=== PATIENT | female | born 1955 | race Caucasian/White ===

== ENCOUNTER 2021-04-02 10:21 | Inpatient (IN) | payer MEDICARE ==
[2021-04-02] VITALS (9 sets, daily range): BP systolic 123–157; BP diastolic 69–129
[~2021-04-02] VITALS: Ht 162.6 cm; Wt 119.7 kg
--- NOTE | 2021-04-02 10:54 | PHYS DOC ---
General Adult EDM: Chief Complaint: WEAKNESS/GENERALIZED HPI: HPI: 65-year-old female presents with weakness. The patient has had increased weakness and decreased exercise tolerance since February. She presents today because she feels like her bilateral lower legs have increased in swelling significantly over the last several days. She has also noticed some abdominal swelling and states that she does not eat very much so she does not see how she can be gaining weight. She has a history of atrial fibrillation with ablation. She is not on medication for rate or rhythm control at this time. She has intermittently noticed that her heart might be beating faster, but she generally does not feel it. She denies fever or chills. She has no official pulmonary diagnosis but used to be a smoker. Review of Systems: Review of Systems: Constitutional: Denies fever or chills. Fatigue Eyes: Denies change in visual acuity HENT: Denies nasal congestion or sore throat Respiratory: shortness of breath Cardiovascular: Denies chest pain. Increased leg and abdominal edema. GI: Denies abdominal pain, nausea, vomiting, bloody stools or diarrhea : Denies dysuria Musculoskeletal: Denies back pain or joint pain Integument: Denies rash Neurologic: Denies headache, focal weakness or sensory changes Endocrine: Denies polyuria or polydipsia Lymphatic: Denies swollen glands Psychiatric: Denies depression or anxiety Current Medications: Current Meds: Current Medications Medications (Trade) Dose Ordered Sig/January Start Time Stop Time Status Last Admin Dose Admin Furosemide (Lasix) 40 mg 1X ONCE 04/02/21 11:00 04/02/21 11:01 UNV Allergies: Allergies: Allergies Coded Allergies Type Severity Reaction Last Updated Verified Penicillins Allergy Unknown 04/02/21 Yes Physical Exam: PE: Constitutional: Well developed, well nourished, obese, no acute distress, non- toxic appearance. [] HENT: Normocephalic, atraumatic, bilateral external ears normal, oropharynx moist, no oral exudates, nose normal. [] Eyes: PERRLA, EOMI, conjunctiva normal, no discharge. [] Neck: Normal range of motion, no tenderness, supple, no stridor. [] Cardiovascular: Heart rate 141,irregular rhythm, no murmur [] Lungs & Thorax: Bilateral breath sounds with expiratory wheeze [] Abdomen: Bowel sounds normal, soft, no tenderness, no masses, no pulsatile masses. [] Skin: Warm, dry, no erythema, no rash. [] Back: No tenderness, no CVA tenderness. [] Extremities: No tenderness, no cyanosis, no clubbing, ROM intact, 4+ pitting edema of the abdomen and bilateral lower extremities to the knees. [] Neurologic: Alert and oriented X 3, normal motor function, normal sensory function, no focal deficits noted. [] Psychologic: Affect normal, judgement normal, mood normal. [] EKG: EKG: Irregular rhythm, rate 141, normal axis, no ST elevation or depression. [] Radiology/Procedures: Radiology/Procedures: [] Impressions: Single view of the chest. 04/02/2021 10:55 AM Indication: Reason: weakness / Spl. Instructions: / History: Comparison: None available Findings: The heart is enlarged. There are small bilateral pleural effusions with underlying atelectasis. Central vascular congestion and interstitial thickening are seen, most likely edema. No acute osseous changes are identified. Chronic right rib fractures noted. IMPRESSION: Cardiomegaly, small bilateral pleural effusions, central vascular congestion, interstitial thickening. These consistent with congestive failure. Electronically signed by: Vincenzo Anaya MD (04/02/2021 11:03 AM) [id number] DICTATED AND SIGNED BY: VINCENZO NAAYA MD DATE: 04/02/21 110 CC: PAYAM CLIFFORD DO; SHWETA BYRNES MD ~MTH0 0 Heart Score: C/O Chest Pain: No Risk Factors: Risk Factors: DM, Current or recent (<one month) smoker, HTN, HLP, family history of CAD, obesity. Risk Scores: Score 0 - 3: 2.5% MACE over next 6 weeks - Discharge Home Score 4 - 6: 20.3% MACE over next 6 weeks - Admit for Clinical Observation Score 7 - 10: 72.7% MACE over next 6 weeks - Early Invasive Strategies Course & Med Decision Making: Course & Med Decision Making Pertinent Labs and Imaging studies reviewed. (See chart for details) On arrival, the patient has a heart rate in the 140s to 160s. She is obviously edematous of the lower extremities and likely the abdomen. We will treat her with 40 mg of Lasix, albuterol nebulizer for wheezing, and 20 mg of Cardizem IV. Her heart rate improved but is increased to the 130s again. The patient's labs are significant for an elevated hemoglobin and hematocrit. She appears clinically dry. I will bolus her with 500 mg of normal saline despite her fluid overload. Her chest x-ray suggestive of pulmonary congestion and fluid overload. I will place her on a Cardizem drip and admit her to the hospital. I spoke with Dr. Diaz and he has accepted the patient for admission. [] Dragon Disclaimer: Dragon Disclaimer: This electronic medical record was generated, in whole or in part, using a voice recognition dictation system. Departure Departure: Impression: Primary Impression: Atrial fibrillation Qualified Codes: I48.0 - Paroxysmal atrial fibrillation Additional Impression: CHF (congestive heart failure) Qualified Codes: I50.21 - Acute systolic (congestive) heart failure Disposition: ADMITTED INPATIENT Admitting Physician: Shweta Byrnes Condition: STABLE Referrals: SHWETA BYRNES MD (PCP) PAYAM CLIFFORD DO Apr 02, 2021 10:53
[2021-04-02] MEDS ORDERED: ALBUTEROL SULFATE 2.5 MG/3 ML NEBU. NEB ONE (11:00)
[2021-04-02] MEDS ORDERED: dilTIAZem 25 MG/5 ML VIAL IVP ONE (11:00)
[2021-04-02] MEDS ORDERED: FUROSEMIDE 40 MG/4 ML VIAL IVP ONE (11:00)
--- NOTE | 2021-04-02 11:05 | RAD ---
Single view of the chest. 04/02/2021 10:55 AM Indication: Reason: weakness / Spl. Instructions: / History: Comparison: None available Findings: The heart is enlarged. There are small bilateral pleural effusions with underlying atelecta sis. Central vascular congestion and interstitial thickening are seen, most likely edema. No acute os seous changes are identified. Chronic right rib fractures noted. IMPRESSION: Cardiomegaly, small bilateral pleural effusions, central vascular congestion, interstitia l thickening. These consistent with congestive failure. Electronically signed by: Vincenzo Lopez MD (04/02/2021 11:03 AM) [id number]
[2021-04-02 11:18] LABS: BASO % 0 % (0-3); EOS % 0 % (0-3); HEMATOCRIT 51.1 % (36.0-47.0); HEMOGLOBIN 16.3 g/dL (12.0-15.5); LYMPH # 0.7 x10^3/uL (1.0-4.8); LYMPH % 7 % (24-48); MEAN CORPUSCULAR HEMOGLOBIN 26 pg (25-35); MEAN CORPUSCULAR HGB CONC 32 g/dL (31-37); MEAN CORPUSCULAR VOLUME 82 fL (79-100); MONO # 0.6 x10^3/uL (0.0-1.1); MONO % 6 % (0-9); NEUT # 8.3 x10^3uL (1.8-7.7); NEUT % 86 % (31-73); PLATELET COUNT 247 x10^3/uL (140-400); RED BLOOD COUNT 6.21 x10^6/uL (3.50-5.40); RED CELL DISTRIBUTION WIDTH 18.6 % (11.5-14.5); WHITE BLOOD COUNT 9.6 x10^3/uL (4.0-11.0)
[2021-04-02 11:31] LABS: CALCIUM 9.6 mg/dL (8.5-10.1); CREATININE 1.4 mg/dL (0.6-1.0); GFR 37.5; POTASSIUM 4.2 mmol/L (3.5-5.1)
[2021-04-02 11:37] LABS: ALBUMIN 3.5 g/dL (3.4-5.0); ALBUMIN/GLOBULIN RATIO 0.9 (1.0-1.7); TOTAL BILIRUBIN 1.6 mg/dL (0.2-1.0); TOTAL PROTEIN 7.3 g/dL (6.4-8.2)
[2021-04-02] MEDS ORDERED: IV NORMAL SALINE 500ML 500 ML IV ONE (12:15)
[2021-04-02 12:33] LABS: BACTERIA,URINE FEW /HPF (0-FEW); BILIRUBIN,URINE NEG (NEG); CLARITY,URINE HAZY; COLOR,URINE YELLOW; GLUCOSE,URINE NEG (NEG); NITRITE,URINE POS (NEG); RBC,URINE 0 /HPF (0-2); SQUAMOUS EPITHELIAL CELL,UR FEW /LPF; WBC,URINE 20-40 /HPF (0-4)
[2021-04-02] MEDS ORDERED: ONDANSETRON PF 4 MG/2 ML VIAL. IVP PRN (12:45)
[2021-04-02] MEDS: dilTIAZem VIAL 125 MG in IV NORMAL SALINE 100ML 100 ML IV PRN ×2 (13:17→13:35)
--- NOTE | 2021-04-02 13:17 | EKG ---
[address] [address] Test Date: 2021-04-02 Test Time: 10:40:07 Pat Name: HARLAN MARIN Department: Room: Gender: F Dimension Specification Inspector: TAMARA : 1955 Requested By: PAYAM CLIFFORD Order Number: [id number] Reading MD: Torsten Fernandez Measurements Intervals [place] Rate: 141 P: SD: QRS: 16 QRSD: 108 T: 56 QT: 300 QTc: 462 Interpretive Statements ATRIAL FIBRILLATION WITH RVR QRS(T) CONTOUR ABNORMALITY CONSIDER ANTEROLATERAL MYOCARDIAL DAMAGE POSSIBLY ABNORMAL ECG RI6.02 No previous ECG available for comparison Electronically Signed On 04-02-2021 15:54:40 CDT by Torsten Fernandez
[2021-04-02] MEDS ORDERED: cloNIDine HCL 0.2 MG TABLET PO STA (15:38)
[2021-04-02] MEDS ORDERED: cloNIDine HCL 0.1 MG TABLET PO STA (16:03)
[2021-04-02] MEDS ORDERED: cloNIDine HCL 0.1 MG TABLET ONE (16:04)
[2021-04-02] MEDS ORDERED: ZOLPIDEM 5 MG TABLET. PO PRN (17:00)
[2021-04-02] MEDS ORDERED: ACETAMINOPHEN 500 MG TABLET PO PRN (17:00)
[2021-04-02] MEDS ORDERED: LISINOPRIL 5 MG TABLET. PO ONE (17:00)
[2021-04-02] MEDS ORDERED: cloNIDine HCL 0.2 MG TABLET PO PRN (17:15)
[2021-04-02] MEDS: FUROSEMIDE 20 MG/2 ML VIAL IVP SCH (18:15)
[2021-04-02] MEDS: CARVEDILOL 3.125 MG TABLET PO SCH (18:16)
--- NOTE | 2021-04-02 19:22 | NUR ---
The patient, HARLAN MARIN, 65 y/o, F admitted by SHWETA BYRNES MD, was given written information regarding hospital policies, unit procedures and contact persons. Valuables were checked and logged. Pt arrived at 1630 today. Call light at bedside.
[2021-04-02] MEDS: SMZ/TMP 800/160MG TABLET. PO SCH (20:00)
[2021-04-02] MEDS: ENOXAPARIN 40 MG/0.4 ML SYRINGE. SQ SCH (20:00)
[2021-04-02] MEDS: ATORVASTATIN CALCIUM 20 MG TABLET PO SCH (20:00)
--- NOTE | 2021-04-02 20:30 | NUR ---
Pt's heart kept dropping into the 30's and her oxygen sats dropped into the mid to upper 80's. MD notified and orders were given to stop cardizem and give metoprolol po. Addendum: 04/02/21 at 2317 by MICHAEL DELATORRE RN Pt's heart rate.
[2021-04-02] MEDS ORDERED: METOPROLOL SUCC 24HR ER 25 MG TAB.ER.24H. PO ONE (20:45)
--- NOTE | 2021-04-02 23:15 | NUR ---
Notified of elevated troponin and heart rate. wanted the Toprol held for now. No new orders for the elevated troponin. Will continue to monitor.
[2021-04-03] VITALS (20 sets, daily range): BP systolic 120–161; BP diastolic 75–114
[2021-04-03 06:16] LABS: BASO # 0.1 x10^3/uL (0.0-0.2); BASO % 1 % (0-3); EOS # 0.1 x10^3/uL (0.0-0.7); EOS % 1 % (0-3); HEMATOCRIT 50.3 % (36.0-47.0); HEMOGLOBIN 15.5 g/dL (12.0-15.5); LYMPH # 1.1 x10^3/uL (1.0-4.8); LYMPH % 13 % (24-48); MEAN CORPUSCULAR HEMOGLOBIN 26 pg (25-35); MEAN CORPUSCULAR HGB CONC 31 g/dL (31-37); MEAN CORPUSCULAR VOLUME 84 fL (79-100); MONO # 0.8 x10^3/uL (0.0-1.1); MONO % 9 % (0-9); NEUT # 6.7 x10^3uL (1.8-7.7); NEUT % 77 % (31-73); PLATELET COUNT 181 x10^3/uL (140-400); RED BLOOD COUNT 6.01 x10^6/uL (3.50-5.40); RED CELL DISTRIBUTION WIDTH 18.8 % (11.5-14.5); WHITE BLOOD COUNT 8.8 x10^3/uL (4.0-11.0)
[2021-04-03 06:39] LABS: CALCIUM 8.9 mg/dL (8.5-10.1); CREATININE 1.3 mg/dL (0.6-1.0); GFR 40.9; POTASSIUM 3.7 mmol/L (3.5-5.1)
[2021-04-03] MEDS: SMZ/TMP 800/160MG TABLET. PO SCH ×2 (08:12→21:02)
[2021-04-03] MEDS: LISINOPRIL 20 MG TABLET PO SCH (08:12)
[2021-04-03] MEDS: CARVEDILOL 3.125 MG TABLET PO SCH ×2 (08:13→17:00)
[2021-04-03] MEDS: METOPROLOL SUCC 24HR ER 25 MG TAB.ER.24H. PO SCH (08:15)
[2021-04-03] MEDS: FUROSEMIDE 20 MG/2 ML VIAL IVP SCH ×2 (08:16→15:21)
[2021-04-03] MEDS: ENOXAPARIN 40 MG/0.4 ML SYRINGE. SQ SCH ×2 (08:16→21:03)
[2021-04-03] MEDS: ATORVASTATIN CALCIUM 20 MG TABLET PO SCH (21:02)
[2021-04-03 23:26] LABS: HEMOGLOBIN A1C 7.3 % (4.8-5.6)
[2021-04-04] VITALS (11 sets, daily range): BP systolic 104–147; BP diastolic 70–96
--- NOTE | 2021-04-04 01:06 | PN ---
SUBJECTIVE: A 65-year-old female in with congestive heart failure and hypertensive urgency, doing better today. The patient has been diuresed. She says she is breathing a lot easier. OBJECTIVE: VITAL SIGNS: Blood pressure 130/75, respiratory rate 18, pulse 100, afebrile, 2 liters at 96. GENERAL: The patient alert, oriented. LUNGS: Showed some rales in the bases, but markedly improved from where they were yesterday. CARDIOVASCULAR: Irregularly irregular rhythm with rapid ventricular response, had been on Cardizem and then switched over to metoprolol for rate control, which seems to be working. ABDOMEN: Soft. EXTREMITIES: Still show +3 pitting edema. NEUROLOGIC: Otherwise, the patient is alert and oriented and stable. IMPRESSION: Acute on chronic congestive heart failure, atrial fibrillation with rapid ventricular response, peripheral edema, stasis dermatitis, chronic kidney disease stage IIIA. PLAN: Continue on diuresis. Continue in the ICU and make further evaluation on her as indicated per Cardiology. CRYSTAL/TEODORA/ZEKE DR: CRYSTAL/yovanny TID: [id number]
[2021-04-04] MEDS: CARVEDILOL 3.125 MG TABLET PO SCH (08:00)
[2021-04-04] MEDS: LISINOPRIL 20 MG TABLET PO SCH (09:00)
[2021-04-04] MEDS: METOPROLOL SUCC 24HR ER 25 MG TAB.ER.24H. PO SCH (09:08)
[2021-04-04] MEDS: FUROSEMIDE 20 MG/2 ML VIAL IVP SCH ×2 (09:09→13:34)
[2021-04-04] MEDS: SMZ/TMP 800/160MG TABLET. PO SCH (09:09)
[2021-04-04] MEDS: ENOXAPARIN 40 MG/0.4 ML SYRINGE. SQ SCH ×2 (09:12→20:26)
--- NOTE | 2021-04-04 10:11 | PN ---
SUBJECTIVE: A 65-year-old female in with acute congestive heart failure, atrial fibrillation with rapid ventricular response, hypertensive urgency, doing better in all fronts. The patient's heart rate down in the low 100s, using metoprolol to slow her heart, rate controlled atrial fibrillation. The patient also is on Lovenox shots, IV furosemide, feels better overall. She has some itching around her face, could be from the Septra-DS, which was used for possible urinary tract infection as well as cellulitis to the lower legs. Legs are swollen, a little bit less so. The patient has stasis dermatitis with erythema noted to the anterior and medial aspects of the legs. Pulses noted distally. OBJECTIVE: LUNGS: Diminished. Some wheezing in the left lower lobe. CARDIOVASCULAR: Irregularly irregular rhythm. ABDOMEN: Soft, protuberant. VITAL SIGNS: The patient's blood pressure 120/70, respiratory rate 20, pulse 100. She is afebrile, 2 liters at 93. The patient is getting PT, OT. We will adjust her medications as noted. IMPRESSION: Systolic acute congestive heart failure, atrial fibrillation with rapid ventricular response, hypertensive urgency, mild polycythemia vera, chronic kidney disease stage 3A, type 2 diabetes with an A1c of 7.3, although blood sugars have been better controlled with diet. Cardiology has seen her and we need an echocardiogram. Her TSH was normal 2.7 and B12 was 1.04. Cholesterol total 170, LDL 118, HDL 31. So, we will try to control her diabetes with her diet, put on fluid restriction and make further evaluation in the a.m. Continue PT, OT. DANIELLE DR: Carmen TID: [id number]
[2021-04-04] MEDS: CETIRIZINE HCL 10 MG TABLET PO SCH (13:33)
[2021-04-04] MEDS: TRIAMCINOLONE ACETONIDE 0.5% TOPICAL CREAM 15GM TUBE. TP SCH (20:25)
[2021-04-04] MEDS: NYSTATIN TOPICAL POWDER 15GM BOTTLE. TP SCH (20:26)
[2021-04-04] MEDS: ATORVASTATIN CALCIUM 20 MG TABLET PO SCH (20:26)
--- NOTE | 2021-04-05 05:27 | NUR ---
Nursing note: Pt up SBA to BSC for toileting d/t weakness BLE. BLE noted to be red, 4+ pitting edema, with scaly/dry patches; cream applied. RLE had open, draining wound to riggs, ABD and kerlix applied. Redness noted under abdominal folds, nystatin applied. Blanchable redness on coccyx, barrier cream applied. Pt resting comfortably with 2LNC at this time.
[2021-04-05 06:00] VITALS: BP 128/85
[2021-04-05] MEDS: ENOXAPARIN 40 MG/0.4 ML SYRINGE. SQ SCH (08:18)
[2021-04-05] MEDS: FUROSEMIDE 20 MG/2 ML VIAL IVP SCH ×2 (08:19→13:15)
[2021-04-05] MEDS: CETIRIZINE HCL 10 MG TABLET PO SCH (08:20)
[2021-04-05] MEDS: LISINOPRIL 20 MG TABLET PO SCH (08:20)
[2021-04-05] MEDS: METOPROLOL SUCC 24HR ER 25 MG TAB.ER.24H. PO SCH (08:21)
[2021-04-05] MEDS: TRIAMCINOLONE ACETONIDE 0.5% TOPICAL CREAM 15GM TUBE. TP SCH ×2 (08:22→20:37)
[2021-04-05] MEDS: NYSTATIN TOPICAL POWDER 15GM BOTTLE. TP SCH ×2 (08:23→20:37)
--- NOTE | 2021-04-05 14:06 | PDOC2 ---
CONSULT DOS: DATE: 04/05/21 TIME: 14:01 Reason for Consult: Rapid atrial fibrillation, heart failure Referring Physician: Dr. Diaz Chief Complaint Weakness and shortness of breath Source: Chart review, Patient Problem List Problems Medical Problems: (1) Atrial fibrillation Status: Acute (2) CHF (congestive heart failure) Status: Acute History of Present Illness The patient is a 65-year-old female who was admitted through the emergency room on the complaining of progressive weakness and shortness of breath as well as lower extremity edema. She has a history of atrial fibrillation and a [place] She additionally has hypertension, hyperlipidemia, chronic kidney disease and diabetes mellitus. Initial work-up showed rapid atrial fibrillation with a rate of 140-1 60. Chest x-ray showed cardiomegaly with central vascular congestion and small bilateral pleural effusions. Patient's blood pressure was also significantly increased. She was initially treated with IV Cardizem and Lasix significantly improved. She has been converted to oral beta blockers with her rate in the high 90s. Her SOB has improved. Cardiovascular: AFIB, CHF, HTN, hyperipidemia Renal/: Chronic renal insuff Endocrine: Diabetes Past Surgical History: Other (Possible atrial fibrillation ablation.) Family History: Hypertension Smoke: Quit ALCOHOL: none Current Medications Current Medications Furosemide (Lasix) 40 mg 1X ONCE IVP Last administered on 04/02/21at 11:03; Start 04/02/21 at 11:00; Stop 04/02/21 at 11:01; Status DC Albuterol Sulfate (Ventolin) 2.5 mg 1X ONCE NEB Last administered on 04/02/21at 11:03; Start 04/02/21 at 11:00; Stop 04/02/21 at 11:01; Status DC Diltiazem HCl (Cardizem Iv Push) 20 mg 1X ONCE IVP Last administered on 04/02/21at 11:02; Start 04/02/21 at 11:00; Stop 04/02/21 at 11:07; Status DC Diltiazem HCl 125 mg/Sodium Chloride 125 ml @ 5 mls/hr CONT PRN IV PER PROTOCOL Last administered on 04/02/21at 13:35; Start 04/02/21 at 12:15; Stop 04/02/21 at 20:34; Status DC Sodium Chloride 500 ml @ 0 mls/hr 1X ONCE IV Last administered on 04/02/21at 13:19; Start 04/02/21 at 12:15; Stop 04/02/21 at 12:16; Status DC Ondansetron HCl (Zofran) 4 mg PRN Q4HRS PRN IVP NAUSEA/VOMITING; Start 04/02/21 at 12:45; Stop 04/03/21 at 12:44; Status DC Clonidine HCl (Catapres) 0.2 mg 1X STAT PO ; Start 04/02/21 at 15:38; Stop 04/02/21 at 15:41; Status DC Clonidine HCl (Catapres) 0.2 mg 1X STAT PO Last administered on 04/02/21at 16:08; Start 04/02/21 at 16:03; Stop 04/02/21 at 16:04; Status DC Clonidine HCl (Catapres) 0.1 mg STK-MED ONCE .ROUTE ; Start 04/02/21 at 16:04; Stop 04/02/21 at 16:04; Status DC Furosemide (Lasix) 20 mg [id number] IVP Last administered on 04/05/21at 13:15; Start 04/02/21 at 17:00 Carvedilol (Coreg) 3.125 mg BIDWMEALS PO Last administered on 04/03/21at 08:13; Start 04/02/21 at 17:00; Stop 04/04/21 at 09:29; Status DC Trimethoprim/ Sulfamethoxazole (Bactrim Ds) 1 tab BID PO Last administered on 04/04/21at 09:09; Start 04/02/21 at 21:00; Stop 04/04/21 at 09:29; Status DC Lisinopril (Prinivil) 20 mg DAILY PO Last administered on 04/05/21at 08:20; Start 04/03/21 at 09:00 Lisinopril (Prinivil) 20 mg 1X ONCE PO Last administered on 04/02/21at 18:16; Start 04/02/21 at 17:00; Stop 04/02/21 at 17:11; Status DC Enoxaparin Sodium (Lovenox 40mg Syringe) 40 mg Q12HR SQ Last administered on 04/05/21at 08:18; Start 04/02/21 at 21:00 Zolpidem Tartrate (Ambien) 5 mg PRN QHS PRN PO INSOMNIA; Start 04/02/21 at 17:00 Acetaminophen (Tylenol) 500 mg PRN Q6HRS PRN PO MILD PAIN / TEMP > 100.3'F; Start 04/02/21 at 17:00 Atorvastatin Calcium (Lipitor) 20 mg QHS PO Last administered on 04/04/21at 20:26; Start 04/02/21 at 21:00 Clonidine HCl (Catapres) 0.2 mg PRN Q1HR PRN PO HYPERTENSION; Start 04/02/21 at 17:15 Metoprolol Succinate (Toprol Xl) 25 mg 1X ONCE PO ; Start 04/02/21 at 20:45; Stop 04/02/21 at 20:59; Status DC Metoprolol Succinate (Toprol Xl) 25 mg DAILY PO Last administered on 04/05/21at 08:21; Start 04/03/21 at 09:00 Triamcinolone Acetonide (Kenalog 0.5%) 1 grecia BID TP Last administered on 04/05/21at 08:22; Start 04/04/21 at 21:00 Cetirizine HCl (ZyrTEC) 10 mg DAILY PO Last administered on 04/05/21at 08:20; Start 04/04/21 at 09:45; Stop 04/06/21 at 09:01 Nystatin (Nystop) 1 grecia BID TP Last administered on 04/05/21at 08:23; Start 04/04/21 at 21:00 Allergies: Coded Allergies: Penicillins (Verified Allergy, Unknown, 04/02/21) General: YES: Fatigue Respiratory: YES: Shortness of breath, SOB with excertion General: No acute distress Lungs: Other (mildly decreased breath sounds) Heart: Other (irrer. irreg.) Abdomen: Normal bowel sounds VITALS Vital Signs Date Time Temp Pulse Resp B/P (MAP) Pulse Ox O2 Delivery O2 Flow Rate FiO2 04/05/21 12:35 97.9 04/05/21 08:21 106 128/85 04/05/21 06:00 19 93 Nasal Cannula 2.0 Labs Laboratory Tests Test 04/04/21 16:27 04/04/21 20:02 04/05/21 08:10 04/05/21 11:54 Glucose (Fingerstick) 95 mg/dL (70-99) 147 mg/dL (70-99) 108 mg/dL (70-99) 103 mg/dL (70-99) Images Chest x-ray with cardiomegaly, central venous congestion and small bilateral lateral pleural effusions. Assessment/Plan 1. Atrial fibrillation with rapid ventricular response. The patient was treated with IV Cardizem with significant improvement in her rate. She is now on oral beta blockers. Would continue medical treatment and increase activity. Risks and benefits or oral anticoag. were discussed with the patient and she has agreed to anticoagulation. CV follow up post discharge. She has a history of an ablation as noted above. 2. Hypertensive urgency. Blood pressure improved. Continue present treatments. 3. Congestive heart failure. Cardiomegaly and vascular congestion on chest x- ray. Patient has responded to IV Lasix. 4. Chronic kidney disease. Monitoring lab. 5. Hyperlipidemia. Lipid panel as above. 6. Diabetes mellitus. As per the primary service. NILSON CUNNINGHAM MD Apr 05, 2021 14:06
[2021-04-05 15:48] VITALS: BP 133/99
[2021-04-05 15:55] VITALS: BP 123/72
--- NOTE | 2021-04-05 17:46 | NUR ---
Nursing note: Pt alert and oriented x 4, cooperative, pleasant. Pt seen by Dr. 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 Pt had a session with PT; ambulated, steady gait with walker, able to use bedside commode by herself. Pt's vital signs stable. Will continue to monitor pt's condition.
[2021-04-05 18:36] VITALS: BP 118/86
[2021-04-05] MEDS: APIXABAN 5 MG TABLET. PO SCH (20:36)
[2021-04-05] MEDS: ATORVASTATIN CALCIUM 20 MG TABLET PO SCH (20:37)
[2021-04-05 23:22] VITALS: BP 134/93
--- NOTE | 2021-04-05 23:24 | PN ---
SUBJECTIVE: A 65-year-old female in with acute congestive heart failure, chronic atrial fibrillation with rapid ventricular response, hypertensive urgency, mild polycythemia. The patient seems to be under much better control. She is in AFib, but rate controlled. She says she is breathing somewhat better. OBJECTIVE: VITAL SIGNS: Blood pressure 123/72, respiratory rate 20, pulse 94, afebrile, 2 liters at 95%. GENERAL: The patient is alert and oriented. LUNGS: Diminished throughout. No rales or rhonchi noted. CARDIOVASCULAR: Irregular regular rhythm. ABDOMEN: Protuberant, soft, nontender. EXTREMITIES: No clubbing, cyanosis. SKIN: There is chronic lymphedema with marked erythema noted to the anterior aspects of the tibia consistent with stasis dermatitis. IMPRESSION: Systolic congestive heart failure, acute respiratory failure, atrial fibrillation with rapid ventricular response, hypertensive urgency, mild polycythemia, chronic kidney disease stage IIIA, type 2 diabetes. PLAN: Continue with present drug regimen with mild diuresis and other therapies noted for the stasis dermatitis. CRYSTAL/EKT DR: CRYSTAL/yovanny TID: [id number]
[2021-04-06 06:08] VITALS: BP 102/74
[2021-04-06 06:25] LABS: BASO # 0.1 x10^3/uL (0.0-0.2); BASO % 1 % (0-3); EOS # 0.1 x10^3/uL (0.0-0.7); EOS % 1 % (0-3); HEMATOCRIT 45.8 % (36.0-47.0); HEMOGLOBIN 14.5 g/dL (12.0-15.5); LYMPH # 0.9 x10^3/uL (1.0-4.8); LYMPH % 14 % (24-48); MEAN CORPUSCULAR HEMOGLOBIN 26 pg (25-35); MEAN CORPUSCULAR HGB CONC 32 g/dL (31-37); MEAN CORPUSCULAR VOLUME 82 fL (79-100); MONO # 0.8 x10^3/uL (0.0-1.1); MONO % 11 % (0-9); NEUT # 5.1 x10^3uL (1.8-7.7); NEUT % 73 % (31-73); PLATELET COUNT 138 x10^3/uL (140-400); RED BLOOD COUNT 5.56 x10^6/uL (3.50-5.40); RED CELL DISTRIBUTION WIDTH 18.2 % (11.5-14.5)
[2021-04-06 06:28] LABS: CALCIUM 8.5 mg/dL (8.5-10.1); CREATININE 1.1 mg/dL (0.6-1.0); GFR 49.5; POTASSIUM 3.5 mmol/L (3.5-5.1)
[2021-04-06] MEDS: LISINOPRIL 20 MG TABLET PO SCH (09:00)
[2021-04-06] MEDS: FUROSEMIDE 20 MG/2 ML VIAL IVP SCH ×2 (10:18→14:00)
[2021-04-06] MEDS: CETIRIZINE HCL 10 MG TABLET PO SCH (10:18)
[2021-04-06] MEDS: APIXABAN 5 MG TABLET. PO SCH ×2 (10:18→21:39)
[2021-04-06] MEDS: METOPROLOL SUCC 24HR ER 25 MG TAB.ER.24H. PO SCH (10:20)
[2021-04-06] MEDS: TRIAMCINOLONE ACETONIDE 0.5% TOPICAL CREAM 15GM TUBE. TP SCH ×2 (10:25→21:40)
[2021-04-06] MEDS: NYSTATIN TOPICAL POWDER 15GM BOTTLE. TP SCH ×2 (10:26→21:40)
[2021-04-06 10:37] VITALS: BP 135/68
[2021-04-06 15:09] VITALS: BP 131/85
--- NOTE | 2021-04-06 18:38 | PDOC ---
DATE OF SERVICE: DOS: DATE: 04/06/21 TIME: 18:37 SUBJECTIVE: The patient was seen and examined. OBJECTIVE: Problems: Problems Medical Problems: (1) Atrial fibrillation Status: Acute (2) CHF (congestive heart failure) Status: Acute Vital Signs/I&O: Vital Signs Date Time Temp Pulse Resp B/P (MAP) Pulse Ox O2 Delivery O2 Flow Rate FiO2 04/06/21 15:09 98.4 88 18 131/85 (100) 90 04/06/21 08:00 Nasal Cannula 2.0 I & O 04/05/21 04/05/21 04/06/21 15:00 23:00 07:00 Intake Total 960 ml Output Total 2100 ml 750 ml Balance -1140 ml -750 ml Labs: Laboratory Tests Test 04/05/21 19:39 04/06/21 05:55 04/06/21 07:50 04/06/21 11:34 Glucose (Fingerstick) 152 mg/dL (70-99) H 102 mg/dL (70-99) H 154 mg/dL (70-99) H White Blood Count 7.0 x10^3/uL (4.0-11.0) Red Blood Count 5.56 x10^6/uL (3.50-5.40) H Hemoglobin 14.5 g/dL (12.0-15.5) Hematocrit 45.8 % (36.0-47.0) Mean Corpuscular Volume 82 fL (79-100) Mean Corpuscular Hemoglobin 26 pg (25-35) Mean Corpuscular Hemoglobin Concent 32 g/dL (31-37) Red Cell Distribution Width 18.2 % (11.5-14.5) H Platelet Count 138 x10^3/uL (140-400) L Neutrophils (%) (Auto) 73 % (31-73) Lymphocytes (%) (Auto) 14 % (24-48) L Monocytes (%) (Auto) 11 % (0-9) H Eosinophils (%) (Auto) 1 % (0-3) Basophils (%) (Auto) 1 % (0-3) Neutrophils # (Auto) 5.1 x10^3uL (1.8-7.7) Lymphocytes # (Auto) 0.9 x10^3/uL (1.0-4.8) L Monocytes # (Auto) 0.8 x10^3/uL (0.0-1.1) Eosinophils # (Auto) 0.1 x10^3/uL (0.0-0.7) Basophils # (Auto) 0.1 x10^3/uL (0.0-0.2) Sodium Level 141 mmol/L (136-145) Potassium Level 3.5 mmol/L (3.5-5.1) Chloride Level 100 mmol/L (98-107) Carbon Dioxide Level 39 mmol/L (21-32) H Anion Gap 2 (6-14) L Blood Urea Nitrogen 24 mg/dL (7-20) H Creatinine 1.1 mg/dL (0.6-1.0) H Estimated GFR (Cockcroft-Gault) 49.5 Glucose Level 106 mg/dL (70-99) H Calcium Level 8.5 mg/dL (8.5-10.1) Magnesium Level 2.0 mg/dL (1.8-2.4) Test 04/06/21 16:30 Glucose (Fingerstick) 157 mg/dL (70-99) H Physical Exam: Chest: Slightly decreased breath sounds. CV: irreg. irreg., rate improved. Abd. Sift, no tenderness. ASSESSMENT: 1. Atrial fibrillation with rapid ventricular response. The patient was treated with IV Cardizem with significant improvement in her rate. She is now on oral beta blockers. Rate improved. Would continue medical treatment and increase activity. Risks and benefits or oral anticoag. were discussed with the patient and she has agreed to anticoagulation. CV follow up post discharge. She has a history of an ablation as noted above. 2. Hypertensive urgency. Blood pressure improved. Continue present treatments. 3. Congestive heart failure. Cardiomegaly and vascular congestion on chest x- ray. Patient has responded to IV Lasix. 4. Chronic kidney disease. Monitoring lab. 5. Hyperlipidemia. Lipid panel as above. 6. Diabetes mellitus. As per the primary service. Justification of Admission: Justification of Admission: Justification of Admission Dx: Yes NILSON CUNNINGHAM MD Apr 06, 2021 18:38
[2021-04-06 19:45] VITALS: BP 149/82
[2021-04-06] MEDS: ATORVASTATIN CALCIUM 20 MG TABLET PO SCH (21:40)
[2021-04-06 23:44] VITALS: BP 130/94
--- NOTE | 2021-04-06 23:54 | PN ---
SUBJECTIVE: A 65-year-old female in with atrial fibrillation, rapid ventricular response as well as congestive heart failure, making good progress. Still getting markedly short of breath with minimal exertion. Still requiring oxygen. OBJECTIVE: VITAL SIGNS: Blood pressure 130/80, respiratory rate 18, pulse of 88, afebrile, 90% on room air. Any exertion, she drops down lower. LUNGS: Diminished, but clear. CARDIOVASCULAR: Irregularly irregular rhythm. ABDOMEN: Soft, nontender. EXTREMITIES: Still with marked swelling, although somewhat improved stasis dermatitis there. LABORATORY DATA: BUN and creatinine 24 and 1.1. IMPRESSION: Acute on chronic congestive heart failure, hypoxia, atrial fibrillation with rapid ventricular response, peripheral edema, stasis dermatitis, chronic kidney disease stage IIIA, morbid obesity, hyperglycemia, type 2 diabetes. PLAN: Continue present regimen and hopefully ready for discharge in the morning. CRYSTAL/RISHABH DR: Carmen TID: [id number]
[2021-04-07 06:06] VITALS: BP 149/88
[2021-04-07] MEDS: APIXABAN 5 MG TABLET. PO SCH (07:45)
[2021-04-07] MEDS: FUROSEMIDE 20 MG/2 ML VIAL IVP SCH (07:45)
[2021-04-07] MEDS: METOPROLOL SUCC 24HR ER 25 MG TAB.ER.24H. PO SCH (07:46)
[2021-04-07] MEDS: LISINOPRIL 20 MG TABLET PO SCH (07:46)
[2021-04-07] MEDS: NYSTATIN TOPICAL POWDER 15GM BOTTLE. TP SCH (07:46)
[2021-04-07] MEDS: TRIAMCINOLONE ACETONIDE 0.5% TOPICAL CREAM 15GM TUBE. TP SCH (07:47)
--- NOTE | 2021-04-07 08:04 | PDOC ---
CARDIO Progress Notes Date & Time Date of Service DATE: 04/07/21 TIME: 08:02 Time of Evaluation 08:02 Subjective Notes Denies any chest pain, shortness of breath, palpitations. LE edema much better Vitals Vitals Vital Signs Date Time Temp Pulse Resp B/P (MAP) Pulse Ox O2 Delivery O2 Flow Rate FiO2 04/07/21 07:46 86 149/88 04/07/21 06:06 97.6 20 92 Room Air 04/06/21 08:00 2.0 Weight Weight [ ] Input and Output I.O. Intake and Output 04/07/21 07:00 Intake Total 1020 ml Output Total 2100 ml Balance -1080 ml Intake Oral 1020 ml Output Urine Total 2100 ml # Voids 1 # Bowel Movements 1 Laboratory Labs Laboratory Tests Test 04/05/21 08:10 04/05/21 11:54 04/05/21 16:46 04/05/21 19:39 Glucose (Fingerstick) 108 mg/dL (70-99) 103 mg/dL (70-99) 107 mg/dL (70-99) 152 mg/dL (70-99) Test 04/06/21 05:55 04/06/21 07:50 04/06/21 11:34 04/06/21 16:30 White Blood Count 7.0 x10^3/uL (4.0-11.0) Red Blood Count 5.56 x10^6/uL (3.50-5.40) Hemoglobin 14.5 g/dL (12.0-15.5) Hematocrit 45.8 % (36.0-47.0) Mean Corpuscular Volume 82 fL (79-100) Mean Corpuscular Hemoglobin 26 pg (25-35) Mean Corpuscular Hemoglobin Concent 32 g/dL (31-37) Red Cell Distribution Width 18.2 % (11.5-14.5) Platelet Count 138 x10^3/uL (140-400) Neutrophils (%) (Auto) 73 % (31-73) Lymphocytes (%) (Auto) 14 % (24-48) Monocytes (%) (Auto) 11 % (0-9) Eosinophils (%) (Auto) 1 % (0-3) Basophils (%) (Auto) 1 % (0-3) Neutrophils # (Auto) 5.1 x10^3uL (1.8-7.7) Lymphocytes # (Auto) 0.9 x10^3/uL (1.0-4.8) Monocytes # (Auto) 0.8 x10^3/uL (0.0-1.1) Eosinophils # (Auto) 0.1 x10^3/uL (0.0-0.7) Basophils # (Auto) 0.1 x10^3/uL (0.0-0.2) Sodium Level 141 mmol/L (136-145) Potassium Level 3.5 mmol/L (3.5-5.1) Chloride Level 100 mmol/L (98-107) Carbon Dioxide Level 39 mmol/L (21-32) Anion Gap 2 (6-14) Blood Urea Nitrogen 24 mg/dL (7-20) Creatinine 1.1 mg/dL (0.6-1.0) Estimated GFR (Cockcroft-Gault) 49.5 Glucose Level 106 mg/dL (70-99) Calcium Level 8.5 mg/dL (8.5-10.1) Magnesium Level 2.0 mg/dL (1.8-2.4) Glucose (Fingerstick) 102 mg/dL (70-99) 154 mg/dL (70-99) 157 mg/dL (70-99) Test 04/06/21 20:04 Glucose (Fingerstick) 193 mg/dL (70-99) Microbiology Micro Microbiology 04/02/21 Urine Culture - Final, Complete Physical Exams HEENT: Neck Supple W Full Motion Chest: Symmetric Lungs: Other (diminished bases) Heart: irregularly irregular (AFIB, rate near 100) Abdomen: Soft N/T, Other (obese ) Extremities: Other (2+ bilateral LE edema ) Neurology: alert, oriented, follow commands Assessment Assessment 1. PAFIB with RVR; s/p previous ablation therapy approximately 8 years ago. rate better controlled with addition of metoprolol. 2. Hypertensive urgency; better controlled 3. Acute on chronic probable diastolic CHF; improved s/p IV diuresis 4. NATHAN on CKD; better 5. Hyperlipidemia; LD 118. statin 6. Diabetes, II 7. UTI Recommendations Increase metoprolol for better rate control Continue Eliquis for stroke prophylaxis. Ongoing diuresis Outpatient echo to assess LV systolic function and ischemic evaluation Consider outpatient CV if patient remains in AFIB Will need to establish cardiology followup. BI,JULIO NEWS AGENT Apr 07, 2021 08:04
[2021-04-07] MEDS ORDERED: METOPROLOL SUCC 24HR ER 25 MG TAB.ER.24H. PO SCH (09:00)
[2021-04-07] MEDS ORDERED: METO-239 PO (09:34)
[2021-04-07] MEDS ORDERED: APIX5TAB3 PO (09:34)
[2021-04-07] MEDS ORDERED: ATOR20TA58 PO (09:34)
[2021-04-07] MEDS ORDERED: NYST60PO TP (09:34)
[2021-04-07] MEDS ORDERED: LISI20TA18 PO (09:34)
[2021-04-07] MEDS ORDERED: FURO20TA3 PO (09:34)
[2021-04-07] MEDS ORDERED: TRIA15CR50 TP (09:34)
[2021-04-07] MEDS ORDERED: ACET500T68 PO (09:34)
--- NOTE | 2021-04-07 09:37 | DISCH ---
HOME HEALTH DISCHARGE/MEDS DISCHARGE INFORMATION: Discharge Date: Apr 07, 2021 Final Diagnosis: Problems Medical Problems: (1) Atrial fibrillation Status: Acute (2) CHF (congestive heart failure) Status: Acute Condition on Discharge: Stable CODE STATUS: Code Status: Full HOME HEALTH: Face to Face: I certify this patient is under my care and that I, or a nurse practitioner or physician's educational program assistant working with me, had a face to face encounter that meets the physician face to face encounter requirements with this patient on April 07, 2021 Medical Condition(s): CHF, HTN, Other (Atrial fiberlation) Alf For: Assess Cardiopulm Status, Assess & Educate Safety, Assess/Skilled Observatio, Medication Management, Other: (oxygen education) Homebound Status Met By: Unsteady balance w/ amb,, Fatigue w/ amb. POST DISCHARGE ORDERS: Activity Instructions for Disc: Activity as tolerated Weight Bearing Status after Di: No restrictions DIET AFTER DISCHARGE: Cardiac CHECKS AFTER DISCHARGE: Checks after discharge: Check blood press - daily TREATMENT/EQUIPMENT ORDERS: Discharge Respiratory Equipmen: Oxygen CERTIFICATION STATEMENT: Certification Statement: Based on the above finding, I certify that this patient is confined to the home and needs intermittent penitentiary care, physical therapy and/or speech therapy, or continues to need occupational therapy.~ This patient is under my care, and I have initiated the establishment of the plan of care.~ This patient will be followed by myself or a community physician who will periodically review the plan of care. SHWETA BYRNES MD Apr 07, 2021 09:37
--- NOTE | 2021-04-07 10:26 | DISCH ---
HOME HEALTH DISCHARGE/MEDS DISCHARGE INFORMATION: Discharge Date: Apr 07, 2021 Final Diagnosis: Problems Medical Problems: (1) Atrial fibrillation Status: Acute (2) CHF (congestive heart failure) Status: Acute Condition on Discharge: Stable CODE STATUS: Code Status: Full HOME HEALTH: Face to Face: I certify this patient is under my care and that I, or a nurse practitioner or physician's respiratory therapy assistant working with me, had a face to face encounter that meets the physician face to face encounter requirements with this patient on April 07, 2021. Medical Condition(s): CHF, HTN Half-Way For: Assess Cardiopulm Status, Assess & Educate Safety, Assess/Skilled Observatio, Medication Management Homebound Status Met By: Fatigue w/ amb. POST DISCHARGE ORDERS: Activity Instructions for Disc: Activity as tolerated Weight Bearing Status after Di: No restrictions DIET AFTER DISCHARGE: Fluid Restriction 1200ml/day CHECKS AFTER DISCHARGE: Checks after discharge: Check blood press - daily CERTIFICATION STATEMENT: Certification Statement: Based on the above finding, I certify that this patient is confined to the home and needs intermittent fci care, physical therapy and/or speech therapy, or continues to need occupational therapy.~ This patient is under my care, and I have initiated the establishment of the plan of care.~ This patient will be followed by myself or a community physician who will periodically review the plan of care. SHWETA BYRNES MD Apr 07, 2021 10:26
[2021-04-07 10:48] VITALS: BP 130/67
--- NOTE | 2021-04-07 11:20 | NUR ---
VSS. WEEMS. Six minute walk completed. No oxygen needed at home. Discharge orders placed. Pt to go home with home health. IV discontinued. All belongings sent home with patient. Pt left @ 1120.
[2021-04-08] MEDS ORDERED: METOPROLOL SUCC 24HR ER 25 MG TAB.ER.24H. PO SCH (09:00)
--- NOTE | 2021-04-17 15:11 | DS ---
DATE OF DISCHARGE: 04/07/2021 HOSPITAL COURSE: A 65-year-old female came in with acute heart failure. The patient also was in renal failure, had stasis dermatitis. The patient was diuresed. She was also seen by Cardiology who made timely suggestions in her care. She also had some cellulitis to her legs consistent with venous stasis dermatitis, urinary tract infection. She was a diabetic, poorly controlled, brought that under control. The patient also had acute renal failure and we improved on that with diuresis. The patient's troponins were within range. Her cholesterol, was total of 170, LDL 118, HDL of 31. B12 was therapeutic and TSH was 2. Her BNP was 8000. A1c was 7.3. She said she try to control her blood sugars with diet and with modest medications. The patient made good progress during the rest of her hospitalizations. The chest x-ray, of course, demonstrated cardiomegaly, bilateral pleural effusions, vascular congestion consistent with CHF. The patient otherwise made good progress during the rest of her hospitalization. Apparently, she will get an echocardiogram as an outpatient. There were no complications. Last blood pressure 130/70, respiratory rate 18, pulse 70, and 2 liters at 89%. She will be maintained on oxygen as an outpatient. The patient otherwise would be [id number] congestive heart failure, acute respiratory failure, atrial fibrillation with rapid ventricular response, peripheral edema, stasis dermatitis, chronic kidney disease stage IIIA, morbid obesity, hyperglycemia, type 2 diabetes. DISCHARGE PLAN: She will be on a heart healthy diabetic diet, decreased activity, continue home meds and MRAD, see above and continue to make the patient progress as an outpatient. Follow up with Dr. Bazzi, child life specialist. CRYSTAL/ORACIO/NIC GREEN: CRYSTAL/yovanny TID: [id number]
== END 2021-04-07 11:20 | disposition home health service (06) | DRG 291 ==
LOC: ER 10:21 → ICU 12:34 → 1 SOUTH 04-06 06:30
PROVIDERS: ADMIT Family Medicine; ATTEND Family Medicine
DX: I13.0 Hypertensive heart and chronic kidney disease with heart failure and stage 1 through stage 4 chronic kidney disease, or unspecified chronic kidney disease (principal); I50.41 Acute combined systolic (congestive) and diastolic (congestive) heart failure; J96.01 Acute respiratory failure with hypoxia; N17.9 Acute kidney failure, unspecified; I48.20 Chronic atrial fibrillation, unspecified; N39.0 Urinary tract infection, site not specified; Z68.42 Body mass index [BMI] 45.0-49.9, adult; L03.116 Cellulitis of left lower limb; L03.115 Cellulitis of right lower limb; Z20.822 Contact with and (suspected) exposure to COVID-19; D45 Polycythemia vera; E11.22 Type 2 diabetes mellitus with diabetic chronic kidney disease; E11.65 Type 2 diabetes mellitus with hyperglycemia; E66.01 Morbid (severe) obesity due to excess calories; E78.5 Hyperlipidemia, unspecified; I16.0 Hypertensive urgency; I48.0 Paroxysmal atrial fibrillation; I87.2 Venous insufficiency (chronic) (peripheral); N18.31 Chronic kidney disease, stage 3a; Z79.01 Long term (current) use of anticoagulants; Z82.49 Family history of ischemic heart disease and other diseases of the circulatory system; Z87.891 Personal history of nicotine dependence; Z88.0 Allergy status to penicillin
CPT/HCPCS: 36415; 71045; 80048; 80053; 80061; 81001; 82607; 82947; 83036; 83735; 83880; 84443; 84484; 85025; 87086; 87426; 93005; 94640; 96374; 96375; 99406; J1650; J1940; J3490; J7040; U0003; 97110; 97116; 97530; 99285-25; J7613

== ENCOUNTER 2021-05-26 14:22 | Inpatient (IN) | payer MEDICARE, MEDICAID ==
[~2021-05-26] VITALS: Ht 162.6 cm; Wt 97.4 kg
[~2021-05-26 14:22] MED LIST: ACET500T68 PO; APIX5TAB3 PO; ATOR20TA58 PO; FURO20TA3 PO; LISI20TA18 PO; METO-239 PO; NYST60PO TP; TRIA15CR50 TP
--- NOTE | 2021-05-26 15:10 | PHYS DOC ---
Past History Past Surgical History: Cholecystectomy, Hysterectomy, Oophorectomy, Tonsillectomy, Other Additional Past Surgical Histo: ADNOIDECTOMY; MESH FOR ABD HERNIA (JONAS HINDS APRN) Alcohol Use: None (JONAS HINDS APRN) General Adult HPI: HPI: Patient is a 65-year-old female who presents to the emergency department today for increased swelling and weeping noted to bilateral lower extremities worse on the right leg. Patient reports that she has had edema in her bilateral lower extremities since March but it has just recently started weeping and becoming red. Patient has a history of CHF, hypertension, A. fib and hyperlipidemia. She usually takes 20 mg of Lasix but states that she has not been taking that medication for 5 days. Patient denies any fevers, nausea/vomiting, chest pain, shortness of breath. Patient states that she does have home health but they do not help her with her wound care. Patient's vital signs are stable and she is in no acute distress at this time. (JONAS HINDS APRN) Review of Systems: Review of Systems: Constitutional: See HPI Respiratory: See HPI Cardiovascular: See HPI GI: See HPI Integument:See HPI (JONAS HINDS APRN) Allergies: Allergies: Allergies Coded Allergies Type Severity Reaction Last Updated Verified Penicillins Allergy Unknown 04/02/21 Yes (JONAS HINDS APRN) Physical Exam: PE: Constitutional: Well developed, well nourished, no acute distress, non-toxic appearance. [] HENT: Normocephalic, atraumatic, bilateral external ears normal, oropharynx moist, no oral exudates, nose normal. [] Eyes: PERRL, EOMI, conjunctiva normal, no discharge. [] Neck: Normal range of motion, no stridor Cardiovascular:Heart rate regular rhythm, no murmur [] Lungs & Thorax: Bilateral breath sounds clear to auscultation [] Abdomen: Bowel sounds normal, soft, no tenderness, obese and edematous, no masses, no pulsatile masses. [] Skin: Warm, dry, no erythema, no rash. [] Back: Normal range of motion Extremities: No tenderness, no cyanosis, no clubbing, ROM intact, 4+ pitting edema noted to bilateral lower extremities with weeping noted. Right lower extremity has moist ulcerations and is erythematous and warm. Decreased dorsalis pedis pulses bilaterally due to edema. Neurologic: Alert and oriented X 3, normal motor function, normal sensory function, no focal deficits noted. [] Psychologic: Affect normal, judgement normal, mood normal. [] (JONAS HINDS APRN) Current Patient Data: Labs: Laboratory Tests Test 05/26/21 15:40 White Blood Count 10.3 x10^3/uL Red Blood Count 5.46 x10^6/uL Hemoglobin 14.1 g/dL Hematocrit 44.5 % Mean Corpuscular Volume 82 fL Mean Corpuscular Hemoglobin 26 pg Mean Corpuscular Hemoglobin Concent 32 g/dL Red Cell Distribution Width 20.4 % Platelet Count 227 x10^3/uL Neutrophils (%) (Auto) 87 % Lymphocytes (%) (Auto) 5 % Monocytes (%) (Auto) 7 % Eosinophils (%) (Auto) 0 % Basophils (%) (Auto) 1 % Neutrophils # (Auto) 9.0 x10^3uL Lymphocytes # (Auto) 0.5 x10^3/uL Monocytes # (Auto) 0.7 x10^3/uL Eosinophils # (Auto) 0.0 x10^3/uL Basophils # (Auto) 0.1 x10^3/uL Sodium Level 140 mmol/L Potassium Level 3.8 mmol/L Chloride Level 97 mmol/L Carbon Dioxide Level 35 mmol/L Anion Gap 8 Blood Urea Nitrogen 29 mg/dL Creatinine 1.3 mg/dL Estimated GFR (Cockcroft-Gault) 40.9 BUN/Creatinine Ratio 22 Glucose Level 131 mg/dL Lactic Acid Level 1.6 mmol/L Calcium Level 8.6 mg/dL Total Bilirubin 1.7 mg/dL Aspartate Amino Transf (AST/SGOT) 43 U/L Alanine Aminotransferase (ALT/SGPT) 28 U/L Alkaline Phosphatase 119 U/L Troponin I High Sensitivity 376 ng/L [id number]-[id number]-Type Natriuretic Peptide 4522 pg/mL Total Protein 6.9 g/dL Albumin 2.9 g/dL Albumin/Globulin Ratio 0.7 (JONAS HINDS APRN) EKG: EKG: EKG performed by ER staff at 1510 shows A. fib with a rate of 131 with PVCs, no STEMI read by Dr. Clifford 1517 rate has improved to 77bpm (JONAS HINDS APRN) Radiology/Procedures: Radiology/Procedures: []PROCEDURE: PORTABLE CHEST 1V Single AP view of the chest. Comparison: 04/02/2021. Indication: CHF Findings: The heart is enlarged but stable. There is no pneumothorax or effusion. Cystic bibasilar airspace disease. There may be trace effusions. There is increased pulmonary vascular congestion. Impression: 1. Cardiomegaly with other signs of CHF. Electronically signed by: Km England MD (05/26/2021 3:37 PM) [facility] DICTATED AND SIGNED BY: KM ENGLAND MD DATE: 05/26/21 1537 CC: SHWETA BYRNES MD; JONAS HINDS APRN ~MTH0 0 (JONAS HINDS APRN) Heart Score: C/O Chest Pain: No Risk Factors: Risk Factors: DM, Current or recent (<one month) smoker, HTN, HLP, family history of CAD, obesity. Risk Scores: Score 0 - 3: 2.5% MACE over next 6 weeks - Discharge Home Score 4 - 6: 20.3% MACE over next 6 weeks - Admit for Clinical Observation Score 7 - 10: 72.7% MACE over next 6 weeks - Early Invasive Strategies (JONAS HINDS APRN) Course & Med Decision Making: Course & Med Decision Making Pertinent Labs and Imaging studies reviewed. (See chart for details) [] Patient presents to the emergency department for increased swelling, weeping and redness noted to lower extremities. Patient reports that she has not been taking her Lasix for 4-5 days. Patient normally takes 20 mg of Lasix at home. Blood work performed in the emergency department. Patient denies any chest pain or shortness of breath. She has a history of A. fib and takes Eliquis. CBC unremarkable. Patient does have elevated BUN and creatinine consistent with previous findings. Patient's BNP is elevated at 4522 which is actually improved from her lab findings in March of this year. Patient's troponin was elevated at 376, patient does have a history of elevated troponins. I contacted Dr. Fernandez at [facility] cardiology group and informed him of the troponin. Chest x-ray shows cardiomegaly and pulmonary vascular congestion consistent with her CHF. Patient will be treated with Lasix and vancomycin for her cellulitis. Patient will require IV antibiotics. Patient to be admitted for CHF exacerbation and cellulitis. She will also require serial troponins and serial EKGs due to the elevated troponin. I discussed patient's case with Dr. Byrnes who is her primary care provider and he agreed to admit the patient under his services. I discussed patient's findings with her and she is agreeable to care plan. ER bridge orders placed 171 (JONAS HINDS APRN) Dragon Disclaimer: Dragon Disclaimer: This electronic medical record was generated, in whole or in part, using a voice recognition dictation system. (JONAS HINDS APRN) Attending Co-Sign The patient was seen and interviewed as well as examined at the bedside. The chart was reviewed. The case was discussed. Agree with the plan of care. (PAYAM CLIFFORD DO) Departure Departure: Impression: Primary Impression: CHF exacerbation Qualified Codes: I50.9 - Heart failure, unspecified Additional Impressions: Cellulitis Qualified Codes: L03.119 - Cellulitis of unspecified part of limb Elevated troponin Disposition: ADMITTED INPATIENT Admitting Physician: Shweta Byrnes (JONAS HINDS APRN) Condition: STABLE Referrals: SHWETA BYRNES MD (PCP) JONAS HINDS APRN May 26, 2021 15:10 PAYAM CLIFFORD DO May 26, 2021 17:47
--- NOTE | 2021-05-26 15:40 | RAD ---
Single AP view of the chest. Comparison: 04/02/2021. Indication: CHF Findings: The heart is enlarged but stable. There is no pneumothorax or effusion. Cystic bibasilar airspace di sease. There may be trace effusions. There is increased pulmonary vascular congestion. Impression: 1. Cardiomegaly with other signs of CHF. Electronically signed by: Km England MD (05/26/2021 3:37 PM) [facility]
[2021-05-26 16:04] LABS: BASO # 0.1 x10^3/uL (0.0-0.2); BASO % 1 % (0-3); EOS % 0 % (0-3); HEMATOCRIT 44.5 % (36.0-47.0); HEMOGLOBIN 14.1 g/dL (12.0-15.5); LYMPH # 0.5 x10^3/uL (1.0-4.8); LYMPH % 5 % (24-48); MEAN CORPUSCULAR HEMOGLOBIN 26 pg (25-35); MEAN CORPUSCULAR HGB CONC 32 g/dL (31-37); MEAN CORPUSCULAR VOLUME 82 fL (79-100); MONO # 0.7 x10^3/uL (0.0-1.1); MONO % 7 % (0-9); NEUT % 87 % (31-73); PLATELET COUNT 227 x10^3/uL (140-400); RED BLOOD COUNT 5.46 x10^6/uL (3.50-5.40); RED CELL DISTRIBUTION WIDTH 20.4 % (11.5-14.5); WHITE BLOOD COUNT 10.3 x10^3/uL (4.0-11.0)
[2021-05-26 16:19] LABS: CALCIUM 8.6 mg/dL (8.5-10.1); CREATININE 1.3 mg/dL (0.6-1.0); GFR 40.9; POTASSIUM 3.8 mmol/L (3.5-5.1)
[2021-05-26 16:31] LABS: ALBUMIN 2.9 g/dL (3.4-5.0); ALBUMIN/GLOBULIN RATIO 0.7 (1.0-1.7); TOTAL BILIRUBIN 1.7 mg/dL (0.2-1.0); TOTAL PROTEIN 6.9 g/dL (6.4-8.2)
--- NOTE | 2021-05-26 16:37 | EKG ---
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
[2021-05-26] MEDS ORDERED: MORPHINE SULFATE 4 MG/ML DISP.SYRIN. IVP PRN (17:15)
[2021-05-26] MEDS ORDERED: FUROSEMIDE 40 MG/4 ML VIAL IVP ONE (17:15)
[2021-05-26] MEDS ORDERED: VANCOMYCIN 2 GM in IV NORMAL SALINE 500ML 500 ML IV ONE (17:30)
[2021-05-26] MEDS ORDERED: ENOXAPARIN ** NOTE DOSE ** SYRINGE SQ ONE (22:00)
[2021-05-26] MEDS: VANCOMYCIN PER PHARMACY MC PRN (22:10)
[2021-05-27] MEDS ORDERED: PERMETHRIN TP ONE (02:00)
[2021-05-27 05:37] VITALS: BP 148/73
[2021-05-27] MEDS ORDERED: ANTI-COAG MONITOR BY PHARMACY. MC PRN (06:15)
--- NOTE | 2021-05-27 06:27 | EKG ---
[address] [address] Test Date: 2021-05-26 Test Time: 21:35:30 Pat Name: HARLAN MARIN Department: Room: 105 A Gender: F Supervisor Pressing Department: MIRYAM : 1955 Requested By: JONAS HINDS Order Number: [id number] Reading MD: Phil Collins MD Measurements Intervals [place] Rate: 129 P: [place]: QRS: 2 QRSD: 112 T: 95 QT: 322 QTc: 474 Interpretive Statements Atrial fibrillation with rapid ventricular response NON-SPECIFIC ST/T CHANGES Electronically Signed On 06-02-2021 15:21:55 SENIOR C SOFTWARE ENGINEER by Phil Collins MD
[2021-05-27 06:28] LABS: BASO % 0 % (0-3); EOS % 0 % (0-3); HEMOGLOBIN 13.6 g/dL (12.0-15.5); LYMPH # 0.4 x10^3/uL (1.0-4.8); LYMPH % 4 % (24-48); MEAN CORPUSCULAR HEMOGLOBIN 26 pg (25-35); MEAN CORPUSCULAR HGB CONC 32 g/dL (31-37); MEAN CORPUSCULAR VOLUME 81 fL (79-100); MONO # 0.9 x10^3/uL (0.0-1.1); MONO % 7 % (0-9); NEUT # 10.8 x10^3uL (1.8-7.7); NEUT % 89 % (31-73); PLATELET COUNT 220 x10^3/uL (140-400); RED CELL DISTRIBUTION WIDTH 19.7 % (11.5-14.5); WHITE BLOOD COUNT 12.1 x10^3/uL (4.0-11.0)
[2021-05-27 06:40] LABS: ALBUMIN 2.6 g/dL (3.4-5.0); ALBUMIN/GLOBULIN RATIO 0.6 (1.0-1.7); CALCIUM 8.7 mg/dL (8.5-10.1); CREATININE 1.1 mg/dL (0.6-1.0); GFR 49.5; POTASSIUM 3.5 mmol/L (3.5-5.1); TOTAL PROTEIN 7.2 g/dL (6.4-8.2)
--- NOTE | 2021-05-27 06:49 | EKG ---
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
[2021-05-27] MEDS: LACTOBACILLUS RHAMNOSUS GG 1 CAPSULE. PO SCH ×2 (08:06→19:49)
[2021-05-27] MEDS: METOPROLOL SUCC 24HR ER 50 MG TAB.ER.24H. PO SCH (08:06)
[2021-05-27] MEDS: LISINOPRIL 20 MG TABLET PO SCH (08:06)
[2021-05-27] MEDS: APIXABAN 5 MG TABLET. PO SCH ×2 (08:07→19:49)
[2021-05-27] MEDS: NYSTATIN TOPICAL POWDER 15GM BOTTLE. TP SCH ×2 (08:07→19:49)
[2021-05-27] MEDS: TRIAMCINOLONE ACETONIDE 0.5% TOPICAL CREAM 15GM TUBE. TP SCH ×2 (08:07→19:49)
--- NOTE | 2021-05-27 08:18 | PDOC2 ---
JULIO PAT APRN 05/27/21 0818: CARDIAC CONSULT DATE OF CONSULT DOS: DATE: 05/27/21 TIME: 08:15 REASON FOR CONSULT Reason for Consult Elevated troponin REFERRING PHYSICIAN Referring Physician Telma Hernandez APRN SOURCE Source: Chart review, Patient HPI History of Present Illness This is a 65 yo female who presented secondary to bilateral LE edema and right lower extremity edema. Patient reports she must have gotten her medications confused to home. Lives at home with brother and reportedly slept from Wednesday until Wednesday. Has not taken her medications since Wednesday. Reports significant LE edema for the last month or so. Has progressively worsened. Erythema and weeping began a couple of days ago. She denies any chest pain, palpitations, dizziness, diaphoresis, or nausea/vomiting. Recent stress test note with reversible ischemia with LVEF 25%. Is scheduled for outpatient [facility] in June. Was noted in AFIB with RVR this morning. Rate now controlled with resumption of metoprolol. PAST MEDICAL HISTORY Cardiovascular: AFIB, CHF, HTN, hyperipidemia Pulmonary: Pneumonia Renal/: Chronic renal insuff Endocrine: Diabetes PAST SURGICAL HISTORY Past Surgical History: Hernia Repair, Hysterectomy FAMILY HISTORY Family History: Hypertension SOCIAL HISTORY Smoke: No ALCOHOL: none Drugs: None Lives: with Family CURRENT MEDICATIONS Current Medications Current Medications Vancomycin HCl (Vanco Per Pharmacy) 1 each PRN DAILY PRN MC SEE COMMENTS Last administered on 05/26/21at 22:10; Start 05/26/21 at 17:15 Furosemide (Lasix) 40 mg 1X ONCE IVP Last administered on 05/26/21at 18:32; Start 05/26/21 at 17:15; Stop 05/26/21 at 17:16; Status DC Morphine Sulfate (Morphine 4mg Syringe) 4 mg PRN Q2HR PRN IVP PAIN; Start 05/26/21 at 17:15; Stop 05/27/21 at 17:14 Vancomycin HCl 2 gm/Sodium Chloride 500 ml @ 250 mls/hr 1X ONCE IV Last administered on 05/26/21at 18:32; Start 05/26/21 at 17:30; Stop 05/26/21 at 19:29; Status DC Enoxaparin Sodium (Lovenox 120mg Syringe) 120 mg 1X ONCE SQ Last administered on 05/26/21at 23:13; Start 05/26/21 at 22:00; Stop 05/26/21 at 22:01; Status DC Vancomycin HCl 1.75 gm/Sodium Chloride 500 ml @ 250 mls/hr Q24H IV ; Start 05/27/21 at 18:00 Vancomycin HCl (Vancomycin Trough Level) 1 each 1X ONCE MC ; Start 05/28/21 at 17:30; Stop 05/28/21 at 17:31 Permethrin (Nix) 1 mahamed 1X ONCE TP Last administered on 05/27/21at 02:00; Start 05/27/21 at 02:00; Stop 05/27/21 at 02:02; Status DC Acetaminophen (Tylenol) 500 mg PRN Q6HRS PRN PO MILD PAIN / TEMP > 100.3'F; Start 05/27/21 at 06:00 Apixaban (Eliquis) 5 mg BID PO Last administered on 05/27/21at 08:07; Start 05/27/21 at 09:00 Atorvastatin Calcium (Lipitor) 20 mg QHS PO ; Start 05/27/21 at 21:00 Furosemide (Lasix) 20 mg DAILY PO Last administered on 05/27/21at 08:07; Start 05/27/21 at 09:00 Lisinopril (Prinivil) 20 mg DAILY PO Last administered on 05/27/21at 08:06; Start 05/27/21 at 09:00 Metoprolol Succinate (Toprol Xl) 50 mg DAILY PO Last administered on 05/27/21at 08:06; Start 05/27/21 at 09:00 Nystatin (Nystop) 1 mahamed BID TP Last administered on 05/27/21at 08:07; Start 05/27/21 at 09:00 Triamcinolone Acetonide (Kenalog 0.5%) 1 mahamed BID TP Last administered on 05/27/21at 08:07; Start 05/27/21 at 09:00 Info (Anti-Coagulation Monitoring By Pharmacy) 1 each PRN DAILY PRN MC PER PROTOCOL; Start 05/27/21 at 06:15 Lactobacillus Rhamnosus (Culturelle) 1 cap BID PO Last administered on 05/27/21at 08:06; Start 05/27/21 at 09:00 Active Scripts Active Triamcinolone Acetonide 0.5% Cream (Triamcinolone Acetonide) 15 Gm Cream..g. 1 Mahamed TP BID Nystop (Nystatin) 60 Gm Powder 1 Mahamed TP BID Metoprolol Succinate ( Xl ) (Metoprolol Succinate) 25 Mg Tab.er.24h 50 Mg PO DAILY 30 Days Lisinopril 20 Mg Tablet 20 Mg PO DAILY 30 Days Furosemide 20 Mg Tablet 1 Tab PO DAILY Atorvastatin Calcium 20 Mg Tablet 20 Mg PO QHS 30 Days Acetaminophen 500 Mg Tablet 500 Mg PO PRN Q6HRS PRN Use as directed on bottle Eliquis (Apixaban) 5 Mg Tablet 5 Mg PO BID 30 Days ALLERGIES Allergies: Coded Allergies: Penicillins (Verified Allergy, Unknown, 04/02/21) ROS Review of Systems 14 point ROS conducted with pertinent positives noted above in HPI PHYSICAL EXAM General: Alert, Oriented X3, Cooperative, No acute distress HEENT: Atraumatic, Other (diminished bases) Heart: Other (AFIB, rate near 100) Abdomen: Other (obese) Extremities: Other (3+ bilateral LE edema, RLE erythema. Drsg intact to LLE) Neuro: Normal speech, Sensation intact Psych/Mental Status: Mental status NL, Mood NL MUSCULOSKELETAL: Osteoarthritic changes both hands VITALS Vital Signs Vital Signs Date Time Temp Pulse Resp B/P (MAP) Pulse Ox O2 Delivery O2 Flow Rate FiO2 05/27/21 08:06 120 148/73 05/27/21 05:37 98.3 18 93 Room Air LABS LABS Laboratory Tests Test 05/26/21 15:40 05/26/21 20:30 05/26/21 23:15 05/27/21 04:11 White Blood Count 10.3 x10^3/uL (4.0-11.0) Red Blood Count 5.46 x10^6/uL (3.50-5.40) Hemoglobin 14.1 g/dL (12.0-15.5) Hematocrit 44.5 % (36.0-47.0) Mean Corpuscular Volume 82 fL (79-100) Mean Corpuscular Hemoglobin 26 pg (25-35) Mean Corpuscular Hemoglobin Concent 32 g/dL (31-37) Red Cell Distribution Width 20.4 % (11.5-14.5) Platelet Count 227 x10^3/uL (140-400) Neutrophils (%) (Auto) 87 % (31-73) Lymphocytes (%) (Auto) 5 % (24-48) Monocytes (%) (Auto) 7 % (0-9) Eosinophils (%) (Auto) 0 % (0-3) Basophils (%) (Auto) 1 % (0-3) Neutrophils # (Auto) 9.0 x10^3uL (1.8-7.7) Lymphocytes # (Auto) 0.5 x10^3/uL (1.0-4.8) Monocytes # (Auto) 0.7 x10^3/uL (0.0-1.1) Eosinophils # (Auto) 0.0 x10^3/uL (0.0-0.7) Basophils # (Auto) 0.1 x10^3/uL (0.0-0.2) Sodium Level 140 mmol/L (136-145) Potassium Level 3.8 mmol/L (3.5-5.1) Chloride Level 97 mmol/L (98-107) Carbon Dioxide Level 35 mmol/L (21-32) Anion Gap 8 (6-14) Blood Urea Nitrogen 29 mg/dL (7-20) Creatinine 1.3 mg/dL (0.6-1.0) Estimated GFR (Cockcroft-Gault) 40.9 BUN/Creatinine Ratio 22 (6-20) Glucose Level 131 mg/dL (70-99) Lactic Acid Level 1.6 mmol/L (0.4-2.0) Calcium Level 8.6 mg/dL (8.5-10.1) Total Bilirubin 1.7 mg/dL (0.2-1.0) Aspartate Amino Transf (AST/SGOT) 43 U/L (15-37) Alanine Aminotransferase (ALT/SGPT) 28 U/L (14-59) Alkaline Phosphatase 119 U/L (46-116) Troponin I High Sensitivity 376 ng/L (4-50) 352 ng/L (4-50) 302 ng/L (4-50) YQ-Haz-L-Type Natriuretic Peptide 4522 pg/mL (0-124) Total Protein 6.9 g/dL (6.4-8.2) Albumin 2.9 g/dL (3.4-5.0) Albumin/Globulin Ratio 0.7 (1.0-1.7) Glucose (Fingerstick) 116 mg/dL (70-99) Test 05/27/21 06:03 05/27/21 06:28 White Blood Count 12.1 x10^3/uL (4.0-11.0) Red Blood Count 5.30 x10^6/uL (3.50-5.40) Hemoglobin 13.6 g/dL (12.0-15.5) Hematocrit 43.0 % (36.0-47.0) Mean Corpuscular Volume 81 fL (79-100) Mean Corpuscular Hemoglobin 26 pg (25-35) Mean Corpuscular Hemoglobin Concent 32 g/dL (31-37) Red Cell Distribution Width 19.7 % (11.5-14.5) Platelet Count 220 x10^3/uL (140-400) Neutrophils (%) (Auto) 89 % (31-73) Lymphocytes (%) (Auto) 4 % (24-48) Monocytes (%) (Auto) 7 % (0-9) Eosinophils (%) (Auto) 0 % (0-3) Basophils (%) (Auto) 0 % (0-3) Neutrophils # (Auto) 10.8 x10^3uL (1.8-7.7) Lymphocytes # (Auto) 0.4 x10^3/uL (1.0-4.8) Monocytes # (Auto) 0.9 x10^3/uL (0.0-1.1) Eosinophils # (Auto) 0.0 x10^3/uL (0.0-0.7) Basophils # (Auto) 0.0 x10^3/uL (0.0-0.2) Sodium Level 139 mmol/L (136-145) Potassium Level 3.5 mmol/L (3.5-5.1) Chloride Level 98 mmol/L (98-107) Carbon Dioxide Level 31 mmol/L (21-32) Anion Gap 10 (6-14) Blood Urea Nitrogen 28 mg/dL (7-20) Creatinine 1.1 mg/dL (0.6-1.0) Estimated GFR (Cockcroft-Gault) 49.5 BUN/Creatinine Ratio 25 (6-20) Glucose Level 119 mg/dL (70-99) Calcium Level 8.7 mg/dL (8.5-10.1) Total Bilirubin 2.0 mg/dL (0.2-1.0) Aspartate Amino Transf (AST/SGOT) 34 U/L (15-37) Alanine Aminotransferase (ALT/SGPT) 22 U/L (14-59) Alkaline Phosphatase 112 U/L (46-116) Total Protein 7.2 g/dL (6.4-8.2) Albumin 2.6 g/dL (3.4-5.0) Albumin/Globulin Ratio 0.6 (1.0-1.7) SARS-CoV-2 Antigen (Rapid) Negative (NEGATIVE) STRESS TEST Stress Test Conclusion 1. Baseline EKG with afib with RVR. 2. Moderate to large sized REVERSIBLE inferior wall defect suggestive of ischemia in the RCA territory. 3. Moderate sized FIXED anteroseptal defect suggestive of prior LAD territory infarct. 4. Severe LV dysfunction. EF 25% 5. High risk for future CV events. 6. Due to atrial fibrillation, gating artifact may be leading to perfusion defects above, correlate clinically. DATE: 04/24/21 1105 ASSESSMENT/PLAN Assessment/Plan 1. Acute on chronic systolic CHF 2. PAFIB; with RVR this morning. s/p previous ablation therapy approximately 8 years ago. presently AFIB, rate near 100 3. Mild troponin elevation; high sensitivity trop peak 376. Most probable type II, demand ischemia. Recent MPI with fixed anteroseptal and moderate to large reversible inferior wall defect. LVEF 25%. CP free 4. Hypertension; elevated 5. CKD 6. Hyperlipidemia; statin 7. Diabetes, II 8. RLE cellulitis Recommendations Diuresis with monitoring of renal function Metoprolol for better rate control Continue Eliquis for stroke prophylaxis. Outpatient [facility] as previously arranged Consider outpatient CV if patient remains in AFIB Treatment of cellulitis as per IM Supportive care ADAM EPPERSON MD 05/28/21 0512: CARDIAC CONSULT ASSESSMENT/PLAN Assessment/Plan Patient seen and examined. Agree with [employer]'s assessment and plan. Continue diuresis for acute on chr systolic HF Slight trop elevation prob demand ischemia Plan for cardiac cath as scheduled secondary to low EF 25% with positive stress test as stated above AF rate better controlled - continue eliquis for stroke prophylaxis Thank you for your consultation JULIO PAT APRN May 27, 2021 08:18 ADAM EPPERSON MD May 28, 2021 05:12
[2021-05-27] MEDS ORDERED: FUROSEMIDE 20 MG TABLET PO SCH (09:00)
[2021-05-27 11:00] VITALS: BP 117/79
[2021-05-27] MEDS: FUROSEMIDE 40 MG/4 ML VIAL IVP SCH (14:39)
--- NOTE | 2021-05-27 17:05 | EKG ---
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
[2021-05-27 17:16] VITALS: BP 133/85
[2021-05-27] MEDS: POTASSIUM CHLORIDE 20 MEQ TABLET.ER. PO SCH (17:48)
[2021-05-27] MEDS: VANCOMYCIN 1.75 GM in IV NORMAL SALINE 500ML 500 ML IV SCH (17:49)
[2021-05-27] MEDS: ATORVASTATIN CALCIUM 20 MG TABLET PO SCH (19:49)
[2021-05-27 20:23] VITALS: BP 119/68
[2021-05-28 00:13] VITALS: BP 113/69
[2021-05-28 05:59] VITALS: BP 132/87
--- NOTE | 2021-05-28 08:00 | PDOC ---
CARDIO Progress Notes Date & Time Date of Service DATE: 05/28/21 TIME: 07:59 Time of Evaluation 07:59 Subjective Notes LE still swollen, leaking. Vitals Vitals Vital Signs Date Time Temp Pulse Resp B/P (MAP) Pulse Ox O2 Delivery O2 Flow Rate FiO2 05/28/21 05:59 98.2 114 18 132/87 (102) 90 Room Air Weight Weight [ ] Input and Output I.O. Intake and Output 05/28/21 07:00 Intake Total 810 ml Output Total 401 ml Balance 409 ml Intake Oral 810 ml Output Urine Total 401 ml # Voids 1 # Bowel Movements 1 Laboratory Labs Laboratory Tests Test 05/26/21 15:40 05/26/21 20:30 05/26/21 23:15 05/27/21 04:11 White Blood Count 10.3 x10^3/uL (4.0-11.0) Red Blood Count 5.46 x10^6/uL (3.50-5.40) Hemoglobin 14.1 g/dL (12.0-15.5) Hematocrit 44.5 % (36.0-47.0) Mean Corpuscular Volume 82 fL (79-100) Mean Corpuscular Hemoglobin 26 pg (25-35) Mean Corpuscular Hemoglobin Concent 32 g/dL (31-37) Red Cell Distribution Width 20.4 % (11.5-14.5) Platelet Count 227 x10^3/uL (140-400) Neutrophils (%) (Auto) 87 % (31-73) Lymphocytes (%) (Auto) 5 % (24-48) Monocytes (%) (Auto) 7 % (0-9) Eosinophils (%) (Auto) 0 % (0-3) Basophils (%) (Auto) 1 % (0-3) Neutrophils # (Auto) 9.0 x10^3uL (1.8-7.7) Lymphocytes # (Auto) 0.5 x10^3/uL (1.0-4.8) Monocytes # (Auto) 0.7 x10^3/uL (0.0-1.1) Eosinophils # (Auto) 0.0 x10^3/uL (0.0-0.7) Basophils # (Auto) 0.1 x10^3/uL (0.0-0.2) Sodium Level 140 mmol/L (136-145) Potassium Level 3.8 mmol/L (3.5-5.1) Chloride Level 97 mmol/L (98-107) Carbon Dioxide Level 35 mmol/L (21-32) Anion Gap 8 (6-14) Blood Urea Nitrogen 29 mg/dL (7-20) Creatinine 1.3 mg/dL (0.6-1.0) Estimated GFR (Cockcroft-Gault) 40.9 BUN/Creatinine Ratio 22 (6-20) Glucose Level 131 mg/dL (70-99) Lactic Acid Level 1.6 mmol/L (0.4-2.0) Calcium Level 8.6 mg/dL (8.5-10.1) Total Bilirubin 1.7 mg/dL (0.2-1.0) Aspartate Amino Transf (AST/SGOT) 43 U/L (15-37) Alanine Aminotransferase (ALT/SGPT) 28 U/L (14-59) Alkaline Phosphatase 119 U/L (46-116) Troponin I High Sensitivity 376 ng/L (4-50) 352 ng/L (4-50) 302 ng/L (4-50) IO-Jtz-G-Type Natriuretic Peptide 4522 pg/mL (0-124) Total Protein 6.9 g/dL (6.4-8.2) Albumin 2.9 g/dL (3.4-5.0) Albumin/Globulin Ratio 0.7 (1.0-1.7) Glucose (Fingerstick) 116 mg/dL (70-99) Test 05/27/21 06:03 05/27/21 06:14 05/27/21 06:28 White Blood Count 12.1 x10^3/uL (4.0-11.0) Red Blood Count 5.30 x10^6/uL (3.50-5.40) Hemoglobin 13.6 g/dL (12.0-15.5) Hematocrit 43.0 % (36.0-47.0) Mean Corpuscular Volume 81 fL (79-100) Mean Corpuscular Hemoglobin 26 pg (25-35) Mean Corpuscular Hemoglobin Concent 32 g/dL (31-37) Red Cell Distribution Width 19.7 % (11.5-14.5) Platelet Count 220 x10^3/uL (140-400) Neutrophils (%) (Auto) 89 % (31-73) Lymphocytes (%) (Auto) 4 % (24-48) Monocytes (%) (Auto) 7 % (0-9) Eosinophils (%) (Auto) 0 % (0-3) Basophils (%) (Auto) 0 % (0-3) Neutrophils # (Auto) 10.8 x10^3uL (1.8-7.7) Lymphocytes # (Auto) 0.4 x10^3/uL (1.0-4.8) Monocytes # (Auto) 0.9 x10^3/uL (0.0-1.1) Eosinophils # (Auto) 0.0 x10^3/uL (0.0-0.7) Basophils # (Auto) 0.0 x10^3/uL (0.0-0.2) Sodium Level 139 mmol/L (136-145) Potassium Level 3.5 mmol/L (3.5-5.1) Chloride Level 98 mmol/L (98-107) Carbon Dioxide Level 31 mmol/L (21-32) Anion Gap 10 (6-14) Blood Urea Nitrogen 28 mg/dL (7-20) Creatinine 1.1 mg/dL (0.6-1.0) Estimated GFR (Cockcroft-Gault) 49.5 BUN/Creatinine Ratio 25 (6-20) Glucose Level 119 mg/dL (70-99) Calcium Level 8.7 mg/dL (8.5-10.1) Total Bilirubin 2.0 mg/dL (0.2-1.0) Aspartate Amino Transf (AST/SGOT) 34 U/L (15-37) Alanine Aminotransferase (ALT/SGPT) 22 U/L (14-59) Alkaline Phosphatase 112 U/L (46-116) Total Protein 7.2 g/dL (6.4-8.2) Albumin 2.6 g/dL (3.4-5.0) Albumin/Globulin Ratio 0.6 (1.0-1.7) Coronavirus (COVID-19)(PCR) Not detected (NOT DETECTD) SARS-CoV-2 Antigen (Rapid) Negative (NEGATIVE) Microbiology Micro Microbiology 05/26/21 Blood Culture - Preliminary, Resulted NO GROWTH AFTER 1 DAY... Physical Exams HEENT: Neck Supple W Full Motion Lungs: Other (diminished ) Heart: irregularly irregular (AFIB, rate near 120) Abdomen: Soft N/T, Other (obese) Extremities: Other (3+ bilateral LE. LE weeping. Bilateral LE erythema preesnt ) Neurology: alert, oriented, follow commands Assessment Assessment 1. Acute on chronic systolic CHF 2. PAFIB; with RVR. s/ previous ablation. Remains with intermittent RVR 3. Mild troponin elevation; high sensitivity trop peak 376. Most probable type II, demand ischemia. Recent MPI with fixed anteroseptal and moderate to large reversible inferior wall defect. LVEF 25%. CP free 4. Hypertension; elevated 5. CKD 6. Hyperlipidemia; statin 7. Diabetes, II 8. LE cellulitis Recommendations Diuresis with monitoring of renal function Needs further fluids offloading; will add metolazone Accurate I and O Continue metoprolol, will increase for better rate control Continue Eliquis for stroke prophylaxis. Outpatient [facility] as previously arranged Consider outpatient CV if patient remains in AFIB Treatment of cellulitis as per IM Supportive care JULIO PAT APRN May 28, 2021 08:00
[2021-05-28] MEDS: METOPROLOL SUCC 24HR ER 50 MG TAB.ER.24H. PO SCH (08:04)
[2021-05-28] MEDS: LACTOBACILLUS RHAMNOSUS GG 1 CAPSULE. PO SCH ×2 (08:04→21:35)
[2021-05-28] MEDS: FUROSEMIDE 40 MG/4 ML VIAL IVP SCH ×2 (08:04→17:38)
[2021-05-28] MEDS: POTASSIUM CHLORIDE 20 MEQ TABLET.ER. PO SCH ×2 (08:04→17:38)
[2021-05-28] MEDS: APIXABAN 5 MG TABLET. PO SCH ×2 (08:05→21:35)
[2021-05-28] MEDS: LISINOPRIL 20 MG TABLET PO SCH (08:05)
[2021-05-28] MEDS: TRIAMCINOLONE ACETONIDE 0.5% TOPICAL CREAM 15GM TUBE. TP SCH ×2 (08:05→21:36)
[2021-05-28] MEDS: NYSTATIN TOPICAL POWDER 15GM BOTTLE. TP SCH ×2 (08:05→21:35)
[2021-05-28 09:06] LABS: BACTERIA,URINE MOD /HPF (0-FEW); BILIRUBIN,URINE SMALL (NEG); CLARITY,URINE HAZY; COLOR,URINE AMBER; GLUCOSE,URINE NEG (NEG); NITRITE,URINE NEG (NEG); SQUAMOUS EPITHELIAL CELL,UR MANY /LPF
--- NOTE | 2021-05-28 09:22 | PN ---
SUBJECTIVE: A 65-year-old female brought in with bilateral cellulitis as well as atrial fibrillation with RVR. She has now also congestive heart failure. The patient in turn has been placed on metoprolol to control her AFib with RVR. She has been seen by Cardiology. OBJECTIVE: VITAL SIGNS: Blood pressure that of 133/80, respiratory rate 20, pulse 110-120, afebrile, respiratory rate 18, 93% on room air. GENERAL: The patient is alert and oriented. LUNGS: Diminished, poor movement of air, some rales in the bases. CARDIOVASCULAR: Irregularly irregular rhythm. ABDOMEN: Markedly protuberant. EXTREMITIES: Erythematous but improved from yesterday. She is on vancomycin IV. The patient also noted to have hard crusty areas. She is in [place] boots. LABORATORY DATA: White count 12, hemoglobin 13, hematocrit 43. Sodium and potassium 139 and 3.5, ____ 28, 1.1, 120. The patient's troponin going down. Albumin 2.6. IMPRESSION: Bilateral cellulitis, morbid obesity, acute on top of chronic diastolic heart failure with low ejection fraction, chronic kidney disease stage IIIB. PLAN: The patient is continued to be monitored carefully, make further evaluation. Continue on IV antibiotic therapy, diuresis and weight control of her atrial fibrillation. Continue with Cardiology's evaluation on her as indicated. CRYSTAL/SU/ZEKE DR: CRYSTAL/yovanny TID: [id number]
[2021-05-28] MEDS ORDERED: METOPROLOL SUCC 24HR ER 25 MG TAB.ER.24H. PO ONE (09:45)
[2021-05-28 11:12] VITALS: BP 130/86
[2021-05-28] MEDS: metOLazone 5 MG TABLET PO SCH (11:16)
[2021-05-28 15:26] VITALS: BP 133/81
[2021-05-28 17:54] LABS: VANC TR 14.8 mcg/mL (10.0-20.0)
[2021-05-28] MEDS: VANCOMYCIN 1.75 GM in IV NORMAL SALINE 500ML 500 ML IV SCH (18:15)
[2021-05-28 19:00] VITALS: BP 153/96
[2021-05-28] MEDS ORDERED: FUROSEMIDE 100 MG/10 ML VIAL IVP ONE (19:15)
[2021-05-28] MEDS: ATORVASTATIN CALCIUM 20 MG TABLET PO SCH (21:35)
[2021-05-28 23:00] VITALS: BP 116/71
--- NOTE | 2021-05-29 01:17 | PN ---
DATE: 05/28/2021 SUBJECTIVE: A 65-year-old female in with bilateral cellulitis as well as acute on top of chronic diastolic heart failure, doing somewhat better today, still requiring IV antibiotic therapy as well as adjusting her metoprolol to decrease her AFib with rapid ventricular response. Otherwise, she says she is feeling better, apparently also being treated for lice in her hair. OBJECTIVE: VITAL SIGNS: Blood pressure 130/86, respiratory rate 20, pulse 105, afebrile, 94 on room air. GENERAL: The patient is alert and oriented. LUNGS: Diminished, markedly improved. CARDIOVASCULAR: Irregularly irregular rhythm. ABDOMEN: Soft, nontender, protuberant. EXTREMITIES: No clubbing, cyanosis. Wrapped, some drainage noted through the dressing. Right leg shows inflammation up into the right thigh itself. The patient continues on IV antibiotic therapy. NEUROLOGIC: Otherwise, the patient is alert and oriented x 3. IMPRESSION AND PLAN: Therefore, acute on top of chronic diastolic heart failure, bilateral cellulitis of the legs, tenia cruris, lice to the hair, atrial fibrillation, rapid ventricular response, elevated hypertension, chronic kidney disease stage IIIA, hyperlipidemia familial, type 2 diabetes, mild depression, hyperbilirubinemia, and severe protein malnutrition. CRYSTAL/TEODORA/MICAH DR: CRYSTAL/yovanny TID: [id number]
[2021-05-29 05:00] VITALS: BP 135/78
[2021-05-29] MEDS: POTASSIUM CHLORIDE 20 MEQ TABLET.ER. PO SCH ×2 (07:42→16:47)
[2021-05-29] MEDS: metOLazone 5 MG TABLET PO SCH (07:42)
[2021-05-29] MEDS: LACTOBACILLUS RHAMNOSUS GG 1 CAPSULE. PO SCH ×2 (07:42→20:36)
[2021-05-29] MEDS: LISINOPRIL 20 MG TABLET PO SCH (07:42)
[2021-05-29] MEDS: METOPROLOL SUCC 24HR ER 50 MG TAB.ER.24H. PO SCH (07:43)
[2021-05-29] MEDS: APIXABAN 5 MG TABLET. PO SCH ×2 (07:43→20:36)
[2021-05-29] MEDS: FUROSEMIDE 40 MG/4 ML VIAL IVP SCH ×2 (07:45→13:19)
[2021-05-29] MEDS: TRIAMCINOLONE ACETONIDE 0.5% TOPICAL CREAM 15GM TUBE. TP SCH ×2 (08:57→20:37)
[2021-05-29] MEDS: NYSTATIN TOPICAL POWDER 15GM BOTTLE. TP SCH ×2 (08:57→20:37)
[2021-05-29] MEDS: VANCOMYCIN PER PHARMACY MC PRN (10:07)
[2021-05-29 10:11] LABS: BASO % 0 % (0-3); EOS # 0.1 x10^3/uL (0.0-0.7); EOS % 1 % (0-3); HEMATOCRIT 42.8 % (36.0-47.0); HEMOGLOBIN 13.6 g/dL (12.0-15.5); LYMPH # 0.6 x10^3/uL (1.0-4.8); LYMPH % 5 % (24-48); MEAN CORPUSCULAR HEMOGLOBIN 26 pg (25-35); MEAN CORPUSCULAR HGB CONC 32 g/dL (31-37); MEAN CORPUSCULAR VOLUME 80 fL (79-100); MONO # 0.8 x10^3/uL (0.0-1.1); MONO % 6 % (0-9); NEUT # 11.3 x10^3uL (1.8-7.7); NEUT % 88 % (31-73); PLATELET COUNT 254 x10^3/uL (140-400); RED BLOOD COUNT 5.34 x10^6/uL (3.50-5.40); RED CELL DISTRIBUTION WIDTH 19.3 % (11.5-14.5); WHITE BLOOD COUNT 12.8 x10^3/uL (4.0-11.0)
[2021-05-29 10:20] LABS: CALCIUM 8.9 mg/dL (8.5-10.1); CREATININE 1.2 mg/dL (0.6-1.0); GFR 44.8
[2021-05-29 10:49] VITALS: BP 128/87
[2021-05-29] MEDS ORDERED: POTASSIUM CHLORIDE 20 MEQ TABLET.ER. PO ONE (12:15)
--- NOTE | 2021-05-29 12:17 | PDOC ---
CARDIO Progress Notes Date & Time Date of Service DATE: 05/29/21 TIME: 12:13 Time of Evaluation 12:13 Subjective Notes peeing alot. No chest pain, palpitations, shortness of breath, chest pain. Vitals Vitals Vital Signs Date Time Temp Pulse Resp B/P (MAP) Pulse Ox O2 Delivery O2 Flow Rate FiO2 05/29/21 10:49 98.3 103 18 128/87 (101) 93 Room Air Weight Weight [ ] Input and Output I.O. Intake and Output 05/29/21 07:00 Intake Total 840 ml Output Total 4900 ml Balance -4060 ml Intake Oral 840 ml Output Urine Total 4900 ml # Voids 1 Laboratory Labs Laboratory Tests Test 05/28/21 06:30 05/28/21 17:32 05/29/21 09:56 Urine Collection Type Unknown Urine Color Lisa Urine Clarity Hazy Urine pH 6.0 Urine Specific [place] 1.015 Urine Protein Neg (NEG-TRACE) Urine Glucose (UA) Neg mg/dL (NEG) Urine Ketones (Stick) Neg mg/dL (NEG) Urine Blood Trace (NEG) Urine Nitrite Neg (NEG) Urine Bilirubin Small (NEG) Urine Urobilinogen Dipstick 4.0 mg/dL (0.2 mg/dL) Urine Leukocyte Esterase Neg (NEG) Urine RBC 1-2 /HPF (0-2) Urine WBC 1-4 /HPF (0-4) Urine Squamous Epithelial Cells Many /LPF Urine Bacteria Mod /HPF (0-FEW) Urine Mucus Slight /LPF Vancomycin Level Trough 14.8 mcg/mL (10.0-20.0) Vancomycin Last Dose Date 05/27/2021 Vancomycin Last Dose Time 1800 White Blood Count 12.8 x10^3/uL (4.0-11.0) Red Blood Count 5.34 x10^6/uL (3.50-5.40) Hemoglobin 13.6 g/dL (12.0-15.5) Hematocrit 42.8 % (36.0-47.0) Mean Corpuscular Volume 80 fL (79-100) Mean Corpuscular Hemoglobin 26 pg (25-35) Mean Corpuscular Hemoglobin Concent 32 g/dL (31-37) Red Cell Distribution Width 19.3 % (11.5-14.5) Platelet Count 254 x10^3/uL (140-400) Neutrophils (%) (Auto) 88 % (31-73) Lymphocytes (%) (Auto) 5 % (24-48) Monocytes (%) (Auto) 6 % (0-9) Eosinophils (%) (Auto) 1 % (0-3) Basophils (%) (Auto) 0 % (0-3) Neutrophils # (Auto) 11.3 x10^3uL (1.8-7.7) Lymphocytes # (Auto) 0.6 x10^3/uL (1.0-4.8) Monocytes # (Auto) 0.8 x10^3/uL (0.0-1.1) Eosinophils # (Auto) 0.1 x10^3/uL (0.0-0.7) Basophils # (Auto) 0.0 x10^3/uL (0.0-0.2) Sodium Level 140 mmol/L (136-145) Potassium Level 3.0 mmol/L (3.5-5.1) Chloride Level 96 mmol/L (98-107) Carbon Dioxide Level 37 mmol/L (21-32) Anion Gap 7 (6-14) Blood Urea Nitrogen 23 mg/dL (7-20) Creatinine 1.2 mg/dL (0.6-1.0) Estimated GFR (Cockcroft-Gault) 44.8 Glucose Level 164 mg/dL (70-99) Calcium Level 8.9 mg/dL (8.5-10.1) Microbiology Micro Microbiology 05/28/21 Urine Culture - Final, Complete 05/26/21 Blood Culture - Preliminary, Resulted NO GROWTH AFTER 2 DAYS... Physical Exams HEENT: Neck Supple W Full Motion Lungs: Other (diminished ) Heart: irregularly irregular (AFIB, controlled ) Abdomen: Soft N/T, Other (obese) Extremities: Other (3+ bilateral LE. LE weeping. Bilateral LE erythema preesnt ) Neurology: alert, oriented, follow commands Assessment Assessment 1. Acute on chronic systolic CHF; goop UOP with IV Lasix, metolazone 2. PAFIB; with RVR. s/ previous ablation. Rate now controlled 3. Mild troponin elevation; high sensitivity trop peak 376. Most probable type II, demand ischemia. Recent MPI with fixed anteroseptal and moderate to large reversible inferior wall defect. LVEF 25%. CP free 4. Hypertension; elevated 5. CKD 6. Hyperlipidemia; statin 7. Diabetes, II 8. LE cellulitis 9. Hypothyroidism Recommendations Ongoing diuresis with monitoring of renal function. Will continue with Lasix 80mg IV BID and metolazone Monitor I and O, daily weights. If unable to effectively diurese, consider addition of Lasix gtt and inotropic support with milrinone Replace K. Check Mg and replace as warranted Continue metoprolol for rate control Eliquis for stroke prophylaxis. Plan for [facility] as previously arranged Consider outpatient CV if patient remains in AFIB Treatment of cellulitis as per IM Supportive care JULIO PAT APRN May 29, 2021 12:17
[2021-05-29 13:15] LABS: % BASOS 1 % (0-3); % EOS 1 % (0-5); % LYMPHS 12 % (24-48); % MONOS 8 % (0-10); % SEGS 78 % (35-66); PLT ESTIMATE ADEQUATE (ADEQUATE)
[2021-05-29 15:17] VITALS: BP 110/57
--- NOTE | 2021-05-29 17:16 | RAD ---
AP chest. HISTORY: PICC line placement AP view was taken of the chest. There is a left arm PICC line extending to the superior vena cava in good position. There is an old right rib fracture. There are mild hazy infiltrates or edema in the jesusita ng bases with a slight improvement. Heart is mildly enlarged. IMPRESSION: 1. Left PICC line good position. 2. Slight improvement in basilar lung disease. Electronically signed by: Louie Bobby MD (05/29/2021 5:13 PM) [facility]
[2021-05-29] MEDS: VANCOMYCIN 1.75 GM in IV NORMAL SALINE 500ML 500 ML IV SCH (17:20)
[2021-05-29 19:00] VITALS: BP 128/76
[2021-05-29] MEDS: ATORVASTATIN CALCIUM 20 MG TABLET PO SCH (20:36)
--- NOTE | 2021-05-29 22:25 | PN ---
SUBJECTIVE: A 65-year-old female in with acute on top of chronic diastolic heart failure as well as that of bilateral cellulitis to her legs and being treated for lice for that matter. The patient in turn says she is feeling a little better. She does look a little stronger. She is diuresing in a noted way. The patient is putting out, yesterday put out 4900 mL of urine and that is with her 80 of Lasix twice a day and metolazone 5 mg daily. She is on vancomycin. OBJECTIVE: VITAL SIGNS: Blood pressure 135/78, respiratory rate 20, pulse 95, afebrile. Room air 91%. LUNGS: Diminished, some crackles in the bases, but markedly improved. CARDIOVASCULAR: Irregularly irregular. ABDOMEN: Soft, protuberant. EXTREMITIES: Actually look somewhat better, still redness, swelling and drainage through the padding, but improved from where they were. We are going to put a PICC line in her, place her on vancomycin. Hopefully get her to a rehab facility. Continue her treatment. She has been treated for the lice in her hair. Overall, making good improvement. LABORATORY DATA: The patient's labs are pending for today to see how her potassium is doing. IMPRESSION: Bilateral cellulitis, morbid obesity, acute on top of chronic diastolic heart failure with low ejection fraction of approximately 25%, chronic kidney disease stage 3B, lice, atrial fibrillation with rapid ventricular response. PLAN: Continue to monitor and adjust medications accordingly. PICC line, IV antibiotic therapy. DANIELLE DR: Carmen TID: [id number]
[2021-05-29 23:00] VITALS: BP 114/68
[2021-05-30 05:00] VITALS: BP 118/76
[2021-05-30] MEDS: METOPROLOL SUCC 24HR ER 50 MG TAB.ER.24H. PO SCH (08:22)
[2021-05-30] MEDS: metOLazone 5 MG TABLET PO SCH (08:22)
[2021-05-30] MEDS: FUROSEMIDE 40 MG/4 ML VIAL IVP SCH ×2 (08:22→15:14)
[2021-05-30] MEDS: LACTOBACILLUS RHAMNOSUS GG 1 CAPSULE. PO SCH ×2 (08:22→20:32)
[2021-05-30] MEDS: LISINOPRIL 20 MG TABLET PO SCH (08:23)
[2021-05-30] MEDS: APIXABAN 5 MG TABLET. PO SCH ×2 (08:23→20:31)
[2021-05-30] MEDS: POTASSIUM CHLORIDE 20 MEQ TABLET.ER. PO SCH ×4 (08:23→20:31)
[2021-05-30] MEDS: TRIAMCINOLONE ACETONIDE 0.5% TOPICAL CREAM 15GM TUBE. TP SCH ×2 (09:00→20:32)
[2021-05-30] MEDS: NYSTATIN TOPICAL POWDER 15GM BOTTLE. TP SCH ×2 (09:00→20:32)
[2021-05-30] MEDS ORDERED: PIPERONYL BUTOXIDE TP ONE (12:30)
[2021-05-30] MEDS ORDERED: PYRETHRINS TP ONE (12:30)
[2021-05-30] MEDS ORDERED: ELECTROLYTE (NON-ICU) PROTOCOL. MC PRN (12:30)
--- NOTE | 2021-05-30 13:43 | PDOC ---
PROGRESS NOTES Date of Service DOS: DATE: 05/30/21 TIME: 13:43 Diagnosis Problem Problems Medical Problems: (1) Cellulitis Status: Acute (2) CHF exacerbation Status: Acute (3) Elevated troponin Status: Acute Assessment 1. Acute on chronic systolic CHF; goop UOP with IV Lasix, metolazone 2. PAFIB; with RVR. s/ previous ablation. Rate now controlled 3. Mild troponin elevation; high sensitivity trop peak 376. Most probable type II, demand ischemia. Recent MPI with fixed anteroseptal and moderate to large reversible inferior wall defect. LVEF 25%. CP free 4. Hypertension; elevated 5. CKD 6. Hyperlipidemia; statin 7. Diabetes, II 8. LE cellulitis 9. Hypothyroidism Recommendations Ongoing diuresis with monitoring of renal function. Will continue with Lasix 80mg IV BID and metolazone Replace K. Continue metoprolol for rate control Eliquis for stroke prophylaxis. Plan for [facility] as previously arranged Consider outpatient CV if patient remains in AFIB Treatment of cellulitis as per IM Supportive care Subjective Dyspnea and edema improving with diuresis Objective Vital Signs Date Time Temp Pulse Resp B/P (MAP) Pulse Ox O2 Delivery O2 Flow Rate FiO2 05/30/21 08:23 100 118/76 05/30/21 05:00 98.0 20 92 Room Air Intake and Output 05/30/21 07:00 Intake Total 3340 ml Output Total 4875 ml Balance -1535 ml Intake Oral 3340 ml Output Urine Total 4875 ml # Bowel Movements 1 Abdomen: Soft, No tenderness Heart: Other (Heart rate irregular) Extremities: Other (2+ pitting edema) General: Alert HEENT: Atraumatic Lungs: Other (Bilateral basal crepitations) Neck: Supple Neuro: Normal speech Psych/Mental Status: Mental status NL Review of Relevant I have reviewed the following items padma (where applicable) has been applied. Labs Microbiology 05/28/21 Urine Culture - Final, Complete 05/26/21 Blood Culture - Preliminary, Resulted NO GROWTH AFTER 3 DAYS... Vitals/I & O Vital Signs Date Time Temp Pulse Resp B/P (MAP) Pulse Ox O2 Delivery O2 Flow Rate FiO2 05/30/21 08:23 100 118/76 05/30/21 05:00 98.0 20 92 Room Air I & O 05/29/21 05/29/21 05/30/21 15:00 23:00 07:00 Intake Total 340 ml 550 ml 2450 ml Output Total 2575 ml 2300 ml Balance -2235 ml -1750 ml 2450 ml Justification of Admission: Justification of Admission: Justification of Admission Dx: Yes ADAM EPPERSON MD May 30, 2021 13:43
[2021-05-30 16:21] VITALS: BP 125/79
[2021-05-30] MEDS: VANCOMYCIN 1.75 GM in IV NORMAL SALINE 500ML 500 ML IV SCH (18:01)
[2021-05-30 20:00] VITALS: BP 118/65
[2021-05-30] MEDS: ATORVASTATIN CALCIUM 20 MG TABLET PO SCH (20:31)
[2021-05-31 00:35] VITALS: BP 117/78
--- NOTE | 2021-05-31 02:15 | PN ---
SUBJECTIVE: A 65-year-old female in with cellulitis, atrial fibrillation with RVR and heart failure, doing somewhat better today, being re-treated for her lice. Otherwise, the patient says she feels a little better. Good diuresis. OBJECTIVE: VITAL SIGNS: Blood pressure 125/80, respiratory rate 18, a pulse 88, afebrile, 91 on room air. GENERAL: The patient is alert and oriented. LUNGS: Diminished, basically clear. CARDIOVASCULAR: Irregularly irregular rhythm. ABDOMEN: Soft, protuberant, nontender. No rebound or guarding. Positive bowel sounds. EXTREMITIES: No clubbing, cyanosis. There is still swelling, although there is wrinkling to the skin and less erythema and consistent with improvement with her cellulitis. The patient is making good progress. Her potassium is a little bit on the low side and will continue to go ahead and give her electrolyte replacement for such. She is continued on the vancomycin and the like. IMPRESSION: Therefore, atrial fibrillation with rapid ventricular response, acute on top of chronic diastolic heart failure, bilateral cellulitis, lice in her scalp. PICC line now placed and will continue with IV antibiotic therapy as indicated. Also, type 2 diabetes, under better control. CRYSTAL/ELLIE/JOJO DR: CRYSTAL/yovanny TID: [id number]
[2021-05-31 05:48] VITALS: BP 116/77
[2021-05-31 07:14] LABS: CALCIUM 8.8 mg/dL (8.5-10.1); CREATININE 1.1 mg/dL (0.6-1.0); GFR 49.5; POTASSIUM 3.6 mmol/L (3.5-5.1)
[2021-05-31] MEDS: LACTOBACILLUS RHAMNOSUS GG 1 CAPSULE. PO SCH ×2 (08:59→20:51)
[2021-05-31] MEDS: FUROSEMIDE 40 MG/4 ML VIAL IVP SCH ×2 (08:59→14:12)
[2021-05-31] MEDS: LISINOPRIL 20 MG TABLET PO SCH (08:59)
[2021-05-31] MEDS: APIXABAN 5 MG TABLET. PO SCH ×2 (08:59→20:52)
[2021-05-31] MEDS: NYSTATIN TOPICAL POWDER 15GM BOTTLE. TP SCH ×2 (09:00→20:52)
[2021-05-31] MEDS: metOLazone 5 MG TABLET PO SCH (09:00)
[2021-05-31] MEDS: METOPROLOL SUCC 24HR ER 50 MG TAB.ER.24H. PO SCH (09:00)
[2021-05-31] MEDS: TRIAMCINOLONE ACETONIDE 0.5% TOPICAL CREAM 15GM TUBE. TP SCH ×2 (09:00→20:51)
[2021-05-31] MEDS: POTASSIUM CHLORIDE 20 MEQ TABLET.ER. PO SCH ×2 (09:04→17:37)
[2021-05-31 10:53] VITALS: BP 114/63
[2021-05-31 15:09] VITALS: BP 137/75
[2021-05-31] MEDS ORDERED: METOPROLOL TART IMMED RELEASE 25 MG TABLET. PO ONE (17:30)
[2021-05-31] MEDS: VANCOMYCIN 1.75 GM in IV NORMAL SALINE 500ML 500 ML IV SCH (17:38)
[2021-05-31 19:35] VITALS: BP 108/65
[2021-05-31] MEDS: ATORVASTATIN CALCIUM 20 MG TABLET PO SCH (20:52)
--- NOTE | 2021-05-31 21:44 | PN ---
SUBJECTIVE: A 65-year-old female in with congestive heart failure, bilateral cellulitis. Continues to diurese. Also, being treated for lice. The patient is resting fairly comfortably, making fairly good progress. OBJECTIVE: VITAL SIGNS: The patient's blood pressure 137/75, respiratory rate 20, pulse 94, afebrile. LUNGS: Diminished, but clear. CARDIOVASCULAR: Regular sinus rhythm. ABDOMEN: Soft. EXTREMITIES: Legs show wrinkling consistent with signs of a person who is diuresing and diuresing quite effectively. LABORATORY: Sodium and potassium 143 and 3.6. BUN and creatinine 23 and 1.1, stable. Blood sugars are good. IMPRESSION: Therefore, acute on top of chronic diastolic heart failure, bilateral cellulitis, lice in the hair, atrial fibrillation with rapid ventricular response under good control, morbid obesity. PLAN: Continue with present drug regimen for now until we can get her placed. CRYSTAL/NAOMI DR: Carmen TID: [id number]
[2021-05-31 23:37] VITALS: BP 149/67
[2021-06-01 06:24] VITALS: BP 130/80
[2021-06-01] MEDS: metOLazone 5 MG TABLET PO SCH (08:37)
[2021-06-01] MEDS: FUROSEMIDE 40 MG/4 ML VIAL IVP SCH ×2 (08:37→14:21)
[2021-06-01] MEDS: LISINOPRIL 20 MG TABLET PO SCH (08:37)
[2021-06-01] MEDS: METOPROLOL SUCC 24HR ER 50 MG TAB.ER.24H. PO SCH (08:38)
[2021-06-01] MEDS: APIXABAN 5 MG TABLET. PO SCH ×2 (08:38→20:45)
[2021-06-01] MEDS: TRIAMCINOLONE ACETONIDE 0.5% TOPICAL CREAM 15GM TUBE. TP SCH ×2 (08:38→20:44)
[2021-06-01] MEDS: NYSTATIN TOPICAL POWDER 15GM BOTTLE. TP SCH ×2 (08:38→20:44)
[2021-06-01] MEDS: POTASSIUM CHLORIDE 20 MEQ TABLET.ER. PO SCH ×2 (08:38→18:04)
[2021-06-01] MEDS: LACTOBACILLUS RHAMNOSUS GG 1 CAPSULE. PO SCH ×2 (08:38→20:45)
[2021-06-01] MEDS ORDERED: PIPERONYL BUTOXIDE TP ONE (12:15)
[2021-06-01] MEDS ORDERED: PYRETHRINS TP ONE (12:15)
--- NOTE | 2021-06-01 12:28 | PN ---
SUBJECTIVE: A 65-year-old female in with bilateral cellulitis, acute on top of chronic diastolic heart failure and atrial fibrillation with rapid ventricular response. The patient is resting fairly comfortably. Excellent diuresis. The patient is making reasonably good progress. OBJECTIVE: VITAL SIGNS: Blood pressure 130/80, respiratory rate 18, pulse 90. She is afebrile, 90% just on room air. GENERAL: The patient otherwise is alert and oriented, has no basic complaints. LUNGS: Diminished, but clear. CARDIOVASCULAR: Regular rhythm. ABDOMEN: Protuberant, soft, nontender. EXTREMITIES. The redness in her legs are somewhat improved. EXTREMITIES: No clubbing, cyanosis, nor edema. NEUROLOGIC: The patient was alert and oriented x 3. The patient continued to be monitored carefully and will continue on IV antibiotic therapy. Labs are stable. IMPRESSION: Acute on top of chronic diastolic heart failure, atrial fibrillation with rapid ventricular response, bilateral cellulitis to the legs, treatment for her legs and severe protein malnutrition. SAMIRA DR: Carmen TID: [id number]
--- NOTE | 2021-06-01 14:56 | PDOC ---
PROGRESS NOTES Date of Service DOS: DATE: 06/01/21 TIME: 14:53 Diagnosis Problem Problems Medical Problems: (1) Cellulitis Status: Acute (2) CHF exacerbation Status: Acute (3) Elevated troponin Status: Acute Assessment Diuresis with1. Acute on chronic systolic CHF; improving with Lasix and metolazone 2. PAFIB; with RVR. s/p previous ablation. Presently with atrial fibrillation with episodes of RVR. 3. Mild troponin elevation; high sensitivity trop peak 376. Most probable type II, demand ischemia. Recent MPI with fixed anteroseptal and moderate to large reversible inferior wall defect. LVEF 25%. CP free 4. Hypertension; better controlled 5. CKD 6. Hyperlipidemia; statin 7. Diabetes, II 8. LE cellulitis 9. Hypothyroidism Recommendations Ongoing diuresis with monitoring of renal function. Continue metoprolol and add digoxin for better control Eliquis for stroke prophylaxis. Plan for [facility] as previously arranged Consider outpatient CV if patient remains in AFIB Treatment of cellulitis as per IM Supportive care Subjective Feeling better with improvement in dyspnea and edema Objective Vital Signs Date Time Temp Pulse Resp B/P (MAP) Pulse Ox O2 Delivery O2 Flow Rate FiO2 06/01/21 08:38 91 130/80 06/01/21 08:00 Room Air 06/01/21 06:24 98.2 18 90 Intake and Output 06/01/21 07:00 Intake Total 1450 ml Output Total 4925 ml Balance -3475 ml Intake Oral 950 ml IV Total 500 ml Output Urine Total 4925 ml # Bowel Movements 1 Abdomen: Soft, No tenderness Heart: Other (Heart rate irregular) Extremities: Other (1-2+ edema with chronic changes) General: Alert HEENT: Atraumatic Lungs: Other (Scattered crepitations bilaterally) Neuro: Normal speech Psych/Mental Status: Mood NL Review of Relevant I have reviewed the following items padma (where applicable) has been applied. Labs Microbiology 05/28/21 Urine Culture - Final, Complete 05/26/21 Blood Culture - Final, Complete NO GROWTH AFTER 5 DAYS... Medications Current Medications Medications (Trade) Dose Ordered Sig/January Route PRN Reason Start Time Stop Time Status Last Admin Dose Admin Metoprolol Tartrate (Lopressor) 25 mg 1X ONCE PO 05/31/21 17:30 05/31/21 17:32 DC 05/31/21 17:37 Vitals/I & O Vital Signs Date Time Temp Pulse Resp B/P (MAP) Pulse Ox O2 Delivery O2 Flow Rate FiO2 06/01/21 08:38 91 130/80 06/01/21 08:00 Room Air 06/01/21 06:24 98.2 18 90 I & O 05/31/21 05/31/21 06/01/21 15:00 23:00 07:00 Intake Total 360 ml 1090 ml Output Total 1450 ml 1675 ml 1800 ml Balance -1090 ml -585 ml -1800 ml Justification of Admission: Justification of Admission: Justification of Admission Dx: Yes ADAM EPPERSON MD Jun 01, 2021 14:55
[2021-06-01 16:51] VITALS: BP 121/82
[2021-06-01] MEDS ORDERED: POTASSIUM CHLORIDE 20 MEQ TABLET.ER. PO ONE (17:30)
[2021-06-01] MEDS ORDERED: MAGNESIUM SULFATE 2GM 50 ML IV ONE (17:30)
[2021-06-01] MEDS: DIGOXIN 125 MCG TABLET PO SCH (18:04)
[2021-06-01] MEDS: VANCOMYCIN 1.75 GM in IV NORMAL SALINE 500ML 500 ML IV SCH (19:29)
[2021-06-01 19:41] VITALS: BP 98/51
[2021-06-01] MEDS: ATORVASTATIN CALCIUM 20 MG TABLET PO SCH (20:45)
[2021-06-01] MEDS: ACETAMINOPHEN 500 MG TABLET PO PRN (20:45)
[2021-06-01] MEDS: LORazepam 0.5 MG TABLET PO PRN (20:45)
[2021-06-01 23:49] VITALS: BP 105/65
[2021-06-02 05:27] VITALS: BP 114/75
--- NOTE | 2021-06-02 07:38 | PDOC ---
JULIO PAT REAL ESTATE AGENT/BROKER 06/02/21 0738: CARDIO Progress Notes Date & Time Date of Service DATE: 06/02/21 TIME: 07:36 Time of Evaluation 07:36 Subjective Notes Legs feel much better. Much less swollen. No chest pain, SOA Vitals Vitals Vital Signs Date Time Temp Pulse Resp B/P (MAP) Pulse Ox O2 Delivery O2 Flow Rate FiO2 06/02/21 05:27 97.8 85 20 114/75 (88) 95 Room Air Weight Weight [ ] Input and Output I.O. Intake and Output 06/02/21 07:00 Intake Total 1390 ml Output Total 3425 ml Balance -2035 ml Intake Oral 840 ml IV Total 550 ml Output Urine Total 3425 ml Microbiology Micro Microbiology 05/28/21 Urine Culture - Final, Complete 05/26/21 Blood Culture - Final, Complete NO GROWTH AFTER 5 DAYS... Physical Exams HEENT: Neck Supple W Full Motion Chest: Symmetric Lungs: Other (diminished ) Heart: irregularly irregular (AFIB, controlled ) Abdomen: Soft N/T, Other (obese) Extremities: Other (1-2+ bilateral LE. DRSG intact ) Neurology: alert, oriented, follow commands Assessment Assessment 1. Acute on chronic systolic CHF; improving with Lasix and metolazone. Good UOP 2. PAFIB; with RVR. s/p previous ablation. Presently with atrial fibrillation with episodes of RVR. rate better controlled with addition of Digoxin 3. Mild troponin elevation; high sensitivity trop peak 376. Most probable type II, demand ischemia. Recent MPI with fixed anteroseptal and moderate to large reversible inferior wall defect. LVEF 25%. CP free 4. Hypertension; controlled 5. CKD 6. Hyperlipidemia; statin 7. Diabetes, II 8. LE cellulitis 9. Hypothyroidism Recommendations Diuresis with monitoring of renal function. Reinforced 2Gm Na diet, 2000cc FR, and daily weight monitoring [place] consult. Continue metoprolol and digoxin for rate control Eliquis for stroke prophylaxis. Plan for [facility] as previously arranged Consider outpatient CV if patient remains in AFIB Treatment of cellulitis as per IM Supportive care NILSON CUNNINGHAM MD 06/02/21 [id number]: CARDIO Progress Notes Assessment Assessment Patient seen and examined I agree with our nurse practitioners assessment and plan. Acute on chronic systolic CHF; continues to improve with Lasix and metolazone. Good UOP PAFIB; with RVR. s/p previous ablation. Presently with atrial fibrillation with episodes of RVR. rate better controlled with addition of Digoxin. Continuing beta-blockers and Eliquis. Mild troponin elevation; high sensitivity trop peak 376. Most probable type II, demand ischemia. Recent MPI with fixed anteroseptal and moderate to large reversible inferior wall defect. LVEF 25%. CP free. Future heart catheterization. Hypertension; controlled CKD Hyperlipidemia; statin Diabetes, II LE cellulitis JULIO PAT APRN Jun 02, 2021 07:38 NILSON CUNNINGHAM MD Jun 02, 2021 16:37
[2021-06-02] MEDS: metOLazone 5 MG TABLET PO SCH (07:50)
[2021-06-02] MEDS: LISINOPRIL 20 MG TABLET PO SCH (07:55)
[2021-06-02] MEDS: LACTOBACILLUS RHAMNOSUS GG 1 CAPSULE. PO SCH ×2 (07:55→21:40)
[2021-06-02] MEDS: FUROSEMIDE 40 MG/4 ML VIAL IVP SCH ×2 (07:55→15:37)
[2021-06-02] MEDS: METOPROLOL SUCC 24HR ER 50 MG TAB.ER.24H. PO SCH (07:55)
[2021-06-02] MEDS: DIGOXIN 125 MCG TABLET PO SCH (07:56)
[2021-06-02] MEDS: TRIAMCINOLONE ACETONIDE 0.5% TOPICAL CREAM 15GM TUBE. TP SCH ×2 (07:57→21:39)
[2021-06-02] MEDS: APIXABAN 5 MG TABLET. PO SCH ×2 (07:57→21:40)
[2021-06-02] MEDS: POTASSIUM CHLORIDE 20 MEQ TABLET.ER. PO SCH ×2 (07:57→17:48)
[2021-06-02] MEDS: NYSTATIN TOPICAL POWDER 15GM BOTTLE. TP SCH ×2 (07:57→21:42)
[2021-06-02 10:25] VITALS: BP 106/58
[2021-06-02 15:22] VITALS: BP 103/61
[2021-06-02 18:45] LABS: CREATININE 1.6 mg/dL (0.6-1.0); GFR 32.2
[2021-06-02 19:57] VITALS: BP 97/51
[2021-06-02] MEDS: ATORVASTATIN CALCIUM 20 MG TABLET PO SCH (21:40)
[2021-06-02] MEDS: ACETAMINOPHEN 500 MG TABLET PO PRN (21:40)
[2021-06-02] MEDS: LORazepam 0.5 MG TABLET PO PRN (21:40)
[2021-06-02 23:32] VITALS: BP 144/84
--- NOTE | 2021-06-03 03:40 | PN ---
SUBJECTIVE: The patient with bilateral cellulitis as well as [id number] chronic diastolic heart failure, rapid ventricular response with atrial fibrillation, doing reasonably well. Heart rate was elevated this morning, although not documented per se. The nurses said it was up to 150, given Lanoxin there. OBJECTIVE: VITAL SIGNS: Blood pressure 110/60, respirations 18, pulse , afebrile, 91% on room air. GENERAL: The patient is alert and oriented. LUNGS: Diminished, but basically clear throughout. CARDIOVASCULAR: rhythm. ABDOMEN: Soft, nontender, no rebound or guarding. Positive bowel sounds, no hepatosplenomegaly was noted. EXTREMITIES: No clubbing, cyanosis, markedly improved. Marked wrinkling consistent with the patient's history of the diuresis that she is having. We will go ahead and continue to monitor the patient accordingly and make further evaluation on her as indicated per those results. IMPRESSION AND PLAN: Therefore of atrial fibrillation with rapid ventricular response, [id number] chronic diastolic heart failure and bilateral cellulitis. Attempts are being made to place her into a rehab facility, to have her obtain continued IV antibiotic therapy, and continue monitoring of her water intake and electrolyte replacement. CRYSTAL/MILAGROS/JOSHUA DR: CRYSTAL/yovanny TID: [id number]
[2021-06-03 06:11] VITALS: BP 101/63
[2021-06-03] MEDS: FUROSEMIDE 40 MG/4 ML VIAL IVP SCH ×2 (07:54→17:30)
[2021-06-03] MEDS: POTASSIUM CHLORIDE 20 MEQ TABLET.ER. PO SCH ×2 (07:55→17:30)
[2021-06-03] MEDS: DIGOXIN 125 MCG TABLET PO SCH (07:55)
[2021-06-03] MEDS: LACTOBACILLUS RHAMNOSUS GG 1 CAPSULE. PO SCH (07:55)
[2021-06-03] MEDS: metOLazone 5 MG TABLET PO SCH (07:55)
[2021-06-03] MEDS: LISINOPRIL 20 MG TABLET PO SCH (07:55)
[2021-06-03] MEDS: APIXABAN 5 MG TABLET. PO SCH (07:56)
[2021-06-03] MEDS: METOPROLOL SUCC 24HR ER 50 MG TAB.ER.24H. PO SCH (07:56)
[2021-06-03] MEDS: TRIAMCINOLONE ACETONIDE 0.5% TOPICAL CREAM 15GM TUBE. TP SCH (07:57)
[2021-06-03] MEDS: NYSTATIN TOPICAL POWDER 15GM BOTTLE. TP SCH (07:57)
--- NOTE | 2021-06-03 08:06 | PDOC ---
JULIO PAT TATIANNA 06/03/21 0806: CARDIO Progress Notes Date & Time Date of Service DATE: 06/03/21 TIME: 08:05 Time of Evaluation 08:05 Subjective Notes Edema better. No chest pain, SOA Vitals Vitals Vital Signs Date Time Temp Pulse Resp B/P (MAP) Pulse Ox O2 Delivery O2 Flow Rate FiO2 06/03/21 07:56 73 101/63 06/03/21 06:11 97.5 20 92 Room Air Weight Weight [ ] Input and Output I.O. Intake and Output 06/03/21 07:00 Intake Total 1260 ml Output Total 2450 ml Balance -1190 ml Intake Oral 1260 ml Output Urine Total 2450 ml Laboratory Labs Laboratory Tests Test 06/02/21 18:22 Creatinine 1.6 mg/dL (0.6-1.0) Estimated GFR (Cockcroft-Gault) 32.2 Vancomycin Level Trough 34.6 mcg/mL (10.0-20.0) Vancomycin Last Dose Date 06/01/21 Vancomycin Last Dose Time 1800 Microbiology Micro Microbiology 05/28/21 Urine Culture - Final, Complete 05/26/21 Blood Culture - Final, Complete NO GROWTH AFTER 5 DAYS... Physical Exams HEENT: Neck Supple W Full Motion Chest: Symmetric Lungs: Other (diminished ) Heart: irregularly irregular (AFIB, controlled ) Abdomen: Soft N/T, Other (obese) Extremities: Other (1-2+ bilateral LE. DRSG intact ) Neurology: alert, oriented, follow commands Assessment Assessment 1. Acute on chronic systolic CHF; improving with Lasix and metolazone. remains with good UOP 2. PAFIB; with RVR. s/p previous ablation. Presently with atrial fibrillation with episodes of RVR. rate better controlled with addition of Digoxin 3. Mild troponin elevation; high sensitivity trop peak 376. Most probable type II, demand ischemia. Recent MPI with fixed anteroseptal and moderate to large reversible inferior wall defect. LVEF 25%. CP free 4. Hypertension; controlled 5. NATHAN on CKD; Cr ^ 1.6 6. Hyperlipidemia; statin 7. Diabetes, II 8. LE cellulitis 9. Hypothyroidism Recommendations Diuresis with monitoring of renal function. Will decrease Lasix given ^ Cr Repeat labs 2Gm Na diet, 2000cc FR, and daily weight monitoring Continue metoprolol and digoxin for rate control Eliquis for stroke prophylaxis. Plan for outpatient [facility] as previously arranged Consider outpatient CV if patient remains in AFIB Treatment of cellulitis as per IM Supportive care SYLVIE STEVENS MD 06/03/211922: CARDIO Progress Notes Plan Plan Patient seen and examined. Agree with above nurse practitioner note. Patient has done extremely well with diuresis. Continue medical therapy. Outpatient follow-up and ischemic evaluation JULIO PAT APRN Jun 03, 2021 08:06 SYLVIE STEVENS MD Jun 03, 2021 19:23
[2021-06-03 08:30] LABS: CALCIUM 9.1 mg/dL (8.5-10.1); CREATININE 1.5 mg/dL (0.6-1.0); GFR 34.6; MAGNESIUM 2.5 mg/dL (1.8-2.4); POTASSIUM 3.6 mmol/L (3.5-5.1)
[2021-06-03 10:26] LABS: VANC TR 34.6 mcg/mL (10.0-20.0)
[2021-06-03 10:37] VITALS: BP 104/57
[2021-06-03] MEDS ORDERED: METO5TAB4 PO (13:07)
[2021-06-03] MEDS ORDERED: POTA20TA4 PO (13:07)
[2021-06-03] MEDS ORDERED: FURO20TA3 PO (13:07)
[2021-06-03] MEDS ORDERED: Vancomycin Per Pharmacy MC (13:07)
[2021-06-03] MEDS ORDERED: VANCOMYCIN RANDOM LEVEL. MC ONE (17:30)
--- NOTE | 2021-06-04 04:24 | PN ---
SUBJECTIVE: The patient being prepped to be transferred to the [facility] rehab for continued IV antibiotic therapy for vancomycin as well as continue to monitor any renal function or dysfunction thereof. The patient otherwise seems to be resting fairly comfortably, making fairly good progress, breathing much easier, had been treated for lice earlier. OBJECTIVE: VITAL SIGNS: Blood pressure 104/60, respiratory rate 18, pulse 80, afebrile, 92 on room air. LUNGS: Diminished, but basically clear. CARDIOVASCULAR: Irregularly irregular rhythm. ABDOMEN: Soft, nontender. EXTREMITIES: No clubbing, cyanosis, nor edema, except for the redness and wrinkling in the lower extremities show marked improvement from where they have been. IMPRESSION: Acute on top of chronic diastolic heart failure, bilateral cellulitis as indicated and atrial fibrillation with rapid ventricular response. TRUDY DR: Carmen TID: [id number]
== END 2021-06-03 17:45 | DRG 602 ==
LOC: ER 14:22 → 1 SOUTH 17:05
PROVIDERS: ADMIT Family Medicine; ATTEND Family Medicine
PROC: 02HV33Z Insertion of Infusion Device into Superior Vena Cava, Percutaneous Approach (ICD-10-PCS; principal; 2021-05-26)
DX: L03.116 Cellulitis of left lower limb (principal); E43 Unspecified severe protein-calorie malnutrition; I50.43 Acute on chronic combined systolic (congestive) and diastolic (congestive) heart failure; I13.0 Hypertensive heart and chronic kidney disease with heart failure and stage 1 through stage 4 chronic kidney disease, or unspecified chronic kidney disease; N17.9 Acute kidney failure, unspecified; L03.115 Cellulitis of right lower limb; B85.2 Pediculosis, unspecified; E03.9 Hypothyroidism, unspecified; E11.22 Type 2 diabetes mellitus with diabetic chronic kidney disease; E66.01 Morbid (severe) obesity due to excess calories; E78.5 Hyperlipidemia, unspecified; I48.0 Paroxysmal atrial fibrillation; N18.32 Chronic kidney disease, stage 3b; Z82.49 Family history of ischemic heart disease and other diseases of the circulatory system; Z90.710 Acquired absence of both cervix and uterus; Z68.36 Body mass index [BMI] 36.0-36.9, adult; Z20.822 Contact with and (suspected) exposure to COVID-19
CPT/HCPCS: 36415; 71045; 80048; 80053; 80202; 81001; 82565; 82947; 83605; 83735; 83880; 84484; 85007; 85025; 87040; 87086; 87426; 93005; 96372; 96375; J1650; J1940; J3370; J3475; J7040; U0003; 97110; 97530; 99285-25